=== PATIENT | female | born 1965 | race Caucasian/White ===

== ENCOUNTER 2018-09-21 18:56 | Observation (INO) | payer MEDICARE, MEDICAID ==
[~2018-09-21] VITALS: Ht 170.2 cm; Wt 76.8 kg
[~2018-09-21 18:56] MED LIST: ASPI-611 PO; BUSP30TA3 PO; CHOL10002 PO; DESV100T PO; EZET10TA14 PO; GLIM4TAB PO; HYDR-4353 PO; IMIP25TA7 PO; INSU100V12 SQ; LAMO200T2 PO; LISI-604 PO; LURA40TA3 PO; MECL-111 PO; METF-438 PO; MULT1TAB74 PO; OMEG1CAP2 PO; OMEP20CA10 PO; ONDA4TAB6 PO; ROSU20TA2 PO; [UNRECOGNIZED DRUG - CODE] PO
[2018-09-21 19:27] LABS: CLARITY,URINE CLEAR (Clear); COLOR,URINE YELLOW (Yellow); GLUCOSE, URINE 100 mg/dl (Neg); KETONES,URINE NEGATIVE (Neg); LEUKOCYTE ESTERASE ,URINE NEGATIVE (Neg); NITRITES, URINE NEGATIVE (Neg); OCCULT BLOOD,URINE NEGATIVE (Neg); PH,URINE 6.5 (4.8-8.0); PROTEIN,URINE NEGATIVE (Neg); UROBILINOGEN,URINE 0.2 E.U/dL (0.2-1.0)
[2018-09-21 19:31] LABS: UA COLLECTION TYPE CLN CATCH MIDSTREAM
[2018-09-21 19:42] LABS: BASOPHILS % (AUTO) 0.8 % (0-1); EOSINOPHILS # (AUTO) 0.1 X10'3 (0-0.9); EOSINOPHILS % (AUTO) 1.6 % (0-6); HEMATOCRIT 36.4 % (35.0-45.0); HEMOGLOBIN 12.4 g/dl (12.0-16.0); LYMPHOCYTES % (AUTO) 35.6 % (21-51); MEAN CORPUSCULAR HEMOGLOBIN 27.7 PG (27.0-31.0); MEAN CORPUSCULAR HGB CONC 34.1 g/dL (33.0-36.5); MEAN CORPUSCULAR VOLUME 81.3 FL (78-98); MEAN PLATELET VOLUME 7.4 FL (7.4-10.4); MONOCYTES # (AUTO) 0.3 X10'3 (0-0.9); MONOCYTES % (AUTO) 5.9 % (2-12); NEUTROPHILS # (AUTO) 3.2 X10'3 (1.8-7.7); NEUTROPHILS % (AUTO) 56.1 % (42-75); PLATELET COUNT 316 X10'3 (140-440); RED BLOOD COUNT 4.47 X10'6 (4.20-5.60); RED CELL DISTRIBUTION WIDTH 14.2 % (11.5-14.5); WHITE BLOOD COUNT 5.7 X10'3 (4.5-11.0)
[2018-09-21 19:54] LABS: PROTHROMBIN TIME 9.7 SECONDS (9.0-12.0)
[2018-09-21 19:57] LABS: ALANINE AMINOTRANSFERASE 29 U/L (12-78); ALBUMIN 3.8 G/DL (3.4-5.0); ALBUMIN/GLOBULIN RATIO 1.2 (1.1-1.5); ALKALINE PHOSPHATASE 46 IU/L (46-116); ANION GAP 10 (8-16); ASPARTATE AMINO TRANSFERASE 18 U/L (10-37); BILIRUBIN,TOTAL 0.2 MG/DL (0.1-1.0); BLOOD UREA NITROGEN 23 MG/DL (7-18); BUN/CREATININE RATIO 28.4 (6.6-38.0); CALCIUM 10.1 MG/DL (8.5-10.1); CHLORIDE 102 MMOL/L (99-107); CREATININE 0.81 MG/DL (0.40-0.90); GLUCOSE 204 MG/DL (70-104); LIPASE 131 U/L (73-393); POTASSIUM 3.9 MMOL/L (3.5-5.1); SODIUM 140 MMOL/L (135-145); TOTAL CARBON DIOXIDE 28.5 MMOL/L (24-32); TOTAL PROTEIN 6.9 G/DL (6.4-8.2); eGFR 74 ML/MIN
[2018-09-21] MEDS ORDERED: temazepam 15mg capsule PO PRN (21:00)
[2018-09-21] MEDS ORDERED: piperacillin/tazo 3.375gm/50ml 50 ML IV SCH (22:25)
[2018-09-21] MEDS ORDERED: piperacillin/tazo 3.375gm/50ml 50 ML IV ONE (22:27)
[2018-09-21] MEDS ORDERED: diphenhydrAMINE 50 mg/ml inj IV ONE (22:45)
[2018-09-21] MEDS ORDERED: morphine 4 MG/ML inj SYRINge IV ONE (22:45)
[2018-09-21] MEDS ORDERED: acetaminophen 325mg tablet PO PRN ×2 (23:10)
[2018-09-21] MEDS ORDERED: dextrose 50%-water 50ml dispensing syringe IV PRN ×2 (23:10)
[2018-09-21] MEDS ORDERED: mag hydrox/Alum hydrox/simeth 30ml oral suspension PO PRN (23:10)
[2018-09-21] MEDS ORDERED: ondansetron/PF 4mg/2ml inj IV PRN (23:10)
[2018-09-21] MEDS ORDERED: morphine 4 MG/ML inj SYRINge IV PRN (23:10)
[2018-09-21] MEDS ORDERED: MESSAGE TO PHARMACY PO ONE (23:10)
[2018-09-21] MEDS ORDERED: magnesium hydroxide 30ml (MOM) UD suspension PO PRN (23:10)
[2018-09-21] MEDS ORDERED: glucagon, human recombinant 1mg kit SUBCUT PRN (23:10)
[2018-09-21] MEDS ORDERED: HYDROcodone/acetaminophen 5mg/325mg tablet PO PRN (23:10)
[2018-09-21] MEDS ORDERED: dextrose ORAL solution 15 GM/59 ML bottle PO PRN ×2 (23:10)
[2018-09-21] MEDS: normal saline 1000ml 1,000 ML IV SCH (23:35)
[2018-09-21 23:57] LABS: HEMOGLOBIN A1C 8.6 % (4.5-6.2)
[2018-09-22] VITALS (20 sets, daily range): BP systolic 122–176; BP diastolic 77–94
[2018-09-22] MEDS: morphine 4 MG/ML inj SYRINge IV PRN ×2 (03:03→07:08)
[2018-09-22] MEDS: piperacillin/tazo 4.5gm/100ml 100 ML IV SCH ×3 (05:47→21:14)
[2018-09-22 05:55] LABS: BASOPHILS % (AUTO) 0.8 % (0-1); EOSINOPHILS # (AUTO) 0.1 X10'3 (0-0.9); EOSINOPHILS % (AUTO) 3.1 % (0-6); HEMATOCRIT 33.4 % (35.0-45.0); HEMOGLOBIN 11.4 g/dl (12.0-16.0); LYMPHOCYTES # (AUTO) 2.4 X10'3 (1.1-4.8); LYMPHOCYTES % (AUTO) 51.2 % (21-51); MEAN CORPUSCULAR HEMOGLOBIN 27.8 PG (27.0-31.0); MEAN CORPUSCULAR HGB CONC 34.2 g/dL (33.0-36.5); MEAN CORPUSCULAR VOLUME 81.3 FL (78-98); MEAN PLATELET VOLUME 7.3 FL (7.4-10.4); MONOCYTES # (AUTO) 0.4 X10'3 (0-0.9); MONOCYTES % (AUTO) 8.4 % (2-12); NEUTROPHILS # (AUTO) 1.7 X10'3 (1.8-7.7); NEUTROPHILS % (AUTO) 36.5 % (42-75); PLATELET COUNT 275 X10'3 (140-440); RED CELL DISTRIBUTION WIDTH 14.5 % (11.5-14.5); WHITE BLOOD COUNT 4.7 X10'3 (4.5-11.0)
[2018-09-22 06:07] LABS: ALBUMIN 3.2 G/DL (3.4-5.0); ANION GAP 7 (8-16); BLOOD UREA NITROGEN 22 MG/DL (7-18); BUN/CREATININE RATIO 26.8 (6.6-38.0); CALCIUM 8.7 MG/DL (8.5-10.1); CHLORIDE 107 MMOL/L (99-107); CREATININE 0.82 MG/DL (0.40-0.90); GLUCOSE 149 MG/DL (70-104); POTASSIUM 4.2 MMOL/L (3.5-5.1); SODIUM 142 MMOL/L (135-145); eGFR 73 ML/MIN
--- NOTE | 2018-09-22 06:37 | NUR ---
Problems reprioritized. Patient report given, questions answered & plan of care reviewed with luiz Su.
--- NOTE | 2018-09-22 06:47 | NUR ---
Received report from Nabila RN
--- NOTE | 2018-09-22 09:48 | NUR ---
DM Consult: A1C 8.6. Pt admit w/ acute pancreatitis currently NPO for OR today per MD note. Hx T2DM, hypercholesterolemia, and pacreatitis w/ stent placed. LBM 09/21. Will monitor for additional protein needs and DM ed post-op once stable. Rec: 1. advance to carb controlled/heart healthy diet post-op 2. monitor for ONS needs post-op 3. DM ed once clinically stable prior to d/c 4. wt per rx Addendum: 09/22/18 at [address] Amended: Links added.
[2018-09-22] MEDS ORDERED: ringers solution, lacted 1,000 ML IV ONE (10:39)
[2018-09-22] MEDS ORDERED: ringers solution, lacted 1,000 ML IV SCH (10:40)
[2018-09-22] MEDS ORDERED: labetalol 20mg/4ml (5mg/ml) syringe IV PRN (10:40)
[2018-09-22] MEDS ORDERED: morphine 4 MG/ML inj SYRINge IV PRN ×2 (10:40)
[2018-09-22] MEDS ORDERED: ondansetron/PF 4mg/2ml inj IV PRN ×2 (10:40→12:30)
[2018-09-22] MEDS ORDERED: hydrALAZINE 20mg/ml inj. IV PRN (10:40)
[2018-09-22] MEDS ORDERED: fentaNYL/PF 50MCG/1 ML 2ML syringe IV PRN (10:40)
[2018-09-22] MEDS ORDERED: BUPIVAcaine/PF 2.5mg/ml (0.25%) 10ml vial ONE (10:42)
[2018-09-22] MEDS ORDERED: rocuronium 10mg/ml inj IV ONE (10:49)
[2018-09-22] MEDS ORDERED: dexamethasone sod phosphate 4mg/ml inj. ONE (10:49)
[2018-09-22] MEDS ORDERED: glycopyrrolate 0.2mg/ml inj ONE (10:49)
[2018-09-22] MEDS ORDERED: fentaNYL/PF 50MCG/1 ML 2ML syringe ONE (10:49)
[2018-09-22] MEDS ORDERED: neostigmine methylsulfate 1 MG/ML 10ml vial ONE (10:49)
[2018-09-22] MEDS ORDERED: midazolam 2 mg/2 ml injection ONE (10:49)
[2018-09-22] MEDS ORDERED: LABETALOL HCL 200mg/40ml (5 MG/ML) inj. IV ONE (11:03)
[2018-09-22] MEDS ORDERED: sevoflurane 250ml liquid IH ONE (11:03)
[2018-09-22] MEDS ORDERED: ondansetron/PF 4mg/2ml inj ONE (11:20)
[2018-09-22] MEDS ORDERED: HYDROcodone/acetaminophen 10/325mg tab PO PRN (12:30)
--- NOTE | 2018-09-22 12:30 | NUR ---
Received from OR via , accompanied by Anesthesiologist DR LEDEZMA and report given by Anesthesiolgist. AWAKENS TO VOICE. VITALS STABLE. DRESSINGS DI. STATES MODERATE ABD PAIN. DEBO WITH SM AMNT SANG FLUID. ABD SOFT.
[2018-09-22] MEDS: fentaNYL/PF 50MCG/1 ML 2ML syringe IV PRN ×4 (12:39→16:29)
--- NOTE | 2018-09-22 13:50 | NUR ---
Report called to receiving nurse. Transferred via BED Belongings . Special Issues communicated to receiving nurse. AWAKE AND ORIENTED. VITALS STABLE. DRESSINGS DI. STATES PAIN IMPROVING. TO ORTHO RM [id number] AT THIS TIME.
[2018-09-22] MEDS: HYDROcodone/acetaminophen 10/325mg tab PO PRN ×3 (15:17→23:43)
[2018-09-22] MEDS: normal saline 1000ml 1,000 ML IV SCH ×2 (15:46→19:10)
[2018-09-22] MEDS: insulin Lispro (HumaLOG) vial - multi-dose SQ SCH ×2 (19:27→21:24)
[2018-09-22] MEDS: busPIRone 15mg tablet PO SCH (19:36)
[2018-09-22] MEDS: venlafaxine 25mg tablet PO SCH (19:37)
[2018-09-22] MEDS ORDERED: non-formulary drug (Buspirone HCl 1 TAB) PO SCH (20:00)
[2018-09-22] MEDS ORDERED: insulin glargine (Lantus) pen - multi-dose SQ SCH (21:00)
[2018-09-22] MEDS ORDERED: non-formulary drug (Meclizine HCl 1 TAB) PO SCH (21:00)
[2018-09-22] MEDS ORDERED: lurasidone 20mg tablet PO SCH (21:00)
[2018-09-22] MEDS ORDERED: lisinopril 5mg tablet PO SCH (21:00)
[2018-09-22] MEDS ORDERED: non-formulary drug (Lurasidone HCl (Latuda) 1 TAB) PO SCH (21:00)
[2018-09-22] MEDS ORDERED: LAMOTRIGINE PO SCH (21:00)
[2018-09-22] MEDS ORDERED: imipramine 25mg tablet PO SCH (21:00)
[2018-09-22] MEDS ORDERED: atorvastatin 20mg tablet PO SCH (21:00)
[2018-09-22] MEDS ORDERED: lamoTRIgine 100mg tablet PO SCH (21:00)
[2018-09-22] MEDS ORDERED: ROSUVASTATIN CALCIUM PO SCH (21:00)
[2018-09-22] MEDS: meclizine 12.5mg tablet PO SCH (21:15)
--- NOTE | 2018-09-22 23:42 | NUR ---
pt ambulated the floor w/o problems
[2018-09-23] MEDS: HYDROcodone/acetaminophen 10/325mg tab PO PRN ×3 (03:52→13:45)
[2018-09-23 06:17] LABS: BASOPHILS % (AUTO) 0.4 % (0-1); EOSINOPHILS % (AUTO) 0 % (0-6); HEMOGLOBIN 11.9 g/dl (12.0-16.0); LYMPHOCYTES # (AUTO) 1.1 X10'3 (1.1-4.8); LYMPHOCYTES % (AUTO) 11.7 % (21-51); MEAN CORPUSCULAR HEMOGLOBIN 27.5 PG (27.0-31.0); MEAN CORPUSCULAR HGB CONC 34.1 g/dL (33.0-36.5); MEAN CORPUSCULAR VOLUME 80.8 FL (78-98); MEAN PLATELET VOLUME 7.4 FL (7.4-10.4); MONOCYTES # (AUTO) 0.7 X10'3 (0-0.9); MONOCYTES % (AUTO) 7.6 % (2-12); NEUTROPHILS # (AUTO) 7.3 X10'3 (1.8-7.7); NEUTROPHILS % (AUTO) 80.3 % (42-75); PLATELET COUNT 316 X10'3 (140-440); RED BLOOD COUNT 4.34 X10'6 (4.20-5.60); RED CELL DISTRIBUTION WIDTH 14.4 % (11.5-14.5); WHITE BLOOD COUNT 9.1 X10'3 (4.5-11.0)
[2018-09-23 06:27] LABS: ALBUMIN 3.3 G/DL (3.4-5.0); ANION GAP 7 (8-16); BLOOD UREA NITROGEN 12 MG/DL (7-18); BUN/CREATININE RATIO 16.4 (6.6-38.0); CALCIUM 8.6 MG/DL (8.5-10.1); CHLORIDE 106 MMOL/L (99-107); CREATININE 0.73 MG/DL (0.40-0.90); GLUCOSE 180 MG/DL (70-104); SODIUM 140 MMOL/L (135-145); TOTAL CARBON DIOXIDE 27.5 MMOL/L (24-32); eGFR 83 ML/MIN
--- NOTE | 2018-09-23 06:37 | NUR ---
Problems reprioritized. Patient report given, questions answered & plan of care reviewed with CHANDA GRANDE.
[2018-09-23 07:00] VITALS: BP 122/83
[2018-09-23] MEDS: busPIRone 15mg tablet PO SCH (07:28)
[2018-09-23] MEDS: venlafaxine 25mg tablet PO SCH (07:28)
[2018-09-23] MEDS: meclizine 12.5mg tablet PO SCH ×2 (07:28→13:00)
[2018-09-23] MEDS: piperacillin/tazo 4.5gm/100ml 100 ML IV SCH ×2 (07:29→14:00)
[2018-09-23] MEDS: normal saline 1000ml 1,000 ML IV SCH (07:29)
[2018-09-23] MEDS ORDERED: DESVENLAFAXINE SUCCINATE PO SCH (08:00)
[2018-09-23] MEDS: insulin Lispro (HumaLOG) vial - multi-dose SQ SCH (09:31)
--- NOTE | 2018-09-23 11:38 | NUR ---
Student documentation: I have reviewed all interventions, assessments performed and documented by Amita Carvajal. Student Medication Administration: For this medication-pass time frame, all medication were reviewed, dispensed, administered and documented per hospital policy by Jessica Carvajal.
[2018-09-23 12:00] VITALS: BP 130/80
== END 2018-09-23 14:59 | disposition home or self-care (01) ==
LOC: ER 18:57 → ED HOLD 23:10 → ORTHO 4S 09-22 01:03
PROVIDERS: ADMIT Hospitalist; ATTEND Hospitalist
DX: K35.80 Unspecified acute appendicitis (principal); R10.31 Right lower quadrant pain; E11.9 Type 2 diabetes mellitus without complications; E78.00 Pure hypercholesterolemia, unspecified; I10 Essential (primary) hypertension; K21.9 Gastro-esophageal reflux disease without esophagitis; M54.9 Dorsalgia, unspecified; G89.29 Other chronic pain; F41.9 Anxiety disorder, unspecified; F31.9 Bipolar disorder, unspecified; E78.5 Hyperlipidemia, unspecified; Z87.442 Personal history of urinary calculi; Z90.49 Acquired absence of other specified parts of digestive tract; Z87.891 Personal history of nicotine dependence; Z88.0 Allergy status to penicillin; Z79.2 Long term (current) use of antibiotics; Z87.19 Personal history of other diseases of the digestive system; Z90.710 Acquired absence of both cervix and uterus
CPT/HCPCS: 36415; 44970; 74176; 80048; 80053; 81003; 82948; 83036; 83690; 85025; 85610; 87070; 96365; 96366; 96372; 96375; 96376; 99284; G0378; J1100; J1200; J2250; J2270; J2405; J2543; J2710; J3010; J3490; J7030; J7120; J8597; 88304; A4315; A6251; A7000; J1815

== ENCOUNTER → 2018-09-29 | Emergency (ER) | payer MEDICARE, MEDICAID ==
[~2018-09-29] VITALS: Ht 170.2 cm; Wt 76.4 kg
[~2018-09-29] MED LIST changes: -MECL-111 PO; -[UNRECOGNIZED DRUG - CODE] PO
[2018-09-29 20:51] LABS: CLARITY,URINE CLEAR (Clear); COLOR,URINE STRAW (Yellow); GLUCOSE, URINE 500 mg/dl (Neg); KETONES,URINE NEGATIVE (Neg); LEUKOCYTE ESTERASE ,URINE NEGATIVE (Neg); NITRITES, URINE NEGATIVE (Neg); OCCULT BLOOD,URINE NEGATIVE (Neg); PH,URINE 6.5 (4.8-8.0); PROTEIN,URINE NEGATIVE (Neg); UROBILINOGEN,URINE 0.2 E.U/dL (0.2-1.0)
[2018-09-29 20:53] LABS: URINE HCG NEGATIVE (NEG)
[2018-09-29 20:55] LABS: UA COLLECTION TYPE CLN CATCH MIDSTREAM
[2018-09-29 20:55] LABS: BASOPHILS # (AUTO) 0.1 X10'3 (0-0.2); BASOPHILS % (AUTO) 0.8 % (0-1); EOSINOPHILS # (AUTO) 0.5 X10'3 (0-0.9); EOSINOPHILS % (AUTO) 7.3 % (0-6); HEMATOCRIT 36.1 % (35.0-45.0); HEMOGLOBIN 12.4 g/dl (12.0-16.0); LYMPHOCYTES # (AUTO) 2.4 X10'3 (1.1-4.8); LYMPHOCYTES % (AUTO) 37.8 % (21-51); MEAN CORPUSCULAR HEMOGLOBIN 27.6 PG (27.0-31.0); MEAN CORPUSCULAR HGB CONC 34.5 g/dL (33.0-36.5); MEAN CORPUSCULAR VOLUME 80.2 FL (78-98); MEAN PLATELET VOLUME 7.3 FL (7.4-10.4); MONOCYTES # (AUTO) 0.5 X10'3 (0-0.9); MONOCYTES % (AUTO) 7.8 % (2-12); NEUTROPHILS # (AUTO) 2.9 X10'3 (1.8-7.7); NEUTROPHILS % (AUTO) 46.3 % (42-75); PLATELET COUNT 353 X10'3 (140-440); RED CELL DISTRIBUTION WIDTH 14.2 % (11.5-14.5); WHITE BLOOD COUNT 6.3 X10'3 (4.5-11.0)
[2018-09-29 21:05] LABS: INR 0.9 INR; PROTHROMBIN TIME 9.4 SECONDS (9.0-12.0)
[2018-09-29 21:07] LABS: ALANINE AMINOTRANSFERASE 36 U/L (12-78); ALBUMIN 3.8 G/DL (3.4-5.0); ALBUMIN/GLOBULIN RATIO 1.2 (1.1-1.5); ALKALINE PHOSPHATASE 61 IU/L (46-116); AMYLASE 52 U/L (25-115); ANION GAP 6 (8-16); ASPARTATE AMINO TRANSFERASE 19 U/L (10-37); BILIRUBIN,TOTAL 0.2 MG/DL (0.1-1.0); BLOOD UREA NITROGEN 14 MG/DL (7-18); BUN/CREATININE RATIO 17.3 (6.6-38.0); CALCIUM 9.4 MG/DL (8.5-10.1); CHLORIDE 103 MMOL/L (99-107); CREATININE 0.81 MG/DL (0.40-0.90); GLUCOSE 233 MG/DL (70-104); LIPASE 172 U/L (73-393); POTASSIUM 3.9 MMOL/L (3.5-5.1); SODIUM 138 MMOL/L (135-145); TOTAL CARBON DIOXIDE 28.6 MMOL/L (24-32); eGFR 74 ML/MIN
[2018-09-29 22:13] VITALS: BP 134/86
== END | disposition home or self-care (01) ==
LOC: ER 20:10
DX: G89.18 Other acute postprocedural pain (principal); K56.7 Ileus, unspecified; R10.84 Generalized abdominal pain; E78.00 Pure hypercholesterolemia, unspecified; I10 Essential (primary) hypertension; K21.9 Gastro-esophageal reflux disease without esophagitis; E11.9 Type 2 diabetes mellitus without complications; G89.29 Other chronic pain; Z90.49 Acquired absence of other specified parts of digestive tract; Z90.710 Acquired absence of both cervix and uterus; Z98.890 Other specified postprocedural states; Z88.1 Allergy status to other antibiotic agents; Z79.82 Long term (current) use of aspirin; Z79.899 Other long term (current) drug therapy; Z79.4 Long term (current) use of insulin
CPT/HCPCS: 36415; 74018; 80053; 81003; 81025; 82150; 83690; 85025; 85610; 93005; 99284

== ENCOUNTER 2018-10-11 03:23 | Emergency (ER) | payer MEDICARE, MEDICAID ==
[~2018-10-11] VITALS: Ht 170.2 cm; Wt 65.8 kg
--- NOTE | 2018-10-11 03:37 | NUR ---
PTS WOUND APPEARS TO BE HEALING WELL, NO S/S INFECTION NOTED. PT SEEN AT SURGEONS OFFICE FRIDAY, YESTERDAY EACH TOLD HER NO PROBLEMS WITH THE WOUND.
[2018-10-11] MEDS ORDERED: normal saline 1000ML IV soln IVB ONE (03:50)
[2018-10-11] MEDS ORDERED: ondansetron/PF 4mg/2ml inj IV ONE (03:50)
[2018-10-11] MEDS ORDERED: iohexol 300mg/ml 100ml inj. ONE (03:58)
[2018-10-11] MEDS ORDERED: [UNRECOGNIZED DRUG - REMARK] PO NR (04:00)
--- NOTE | 2018-10-11 04:10 | NUR ---
LABS DRAWN, INCLUDNG BLOOD CULTURES
[2018-10-11] MEDS: morphine 4 MG/ML inj SYRINge IV PRN ×3 (04:20→07:20)
[2018-10-11 04:38] LABS: BASOPHILS # (AUTO) 0.1 X10'3 (0-0.2); BASOPHILS % (AUTO) 0.5 % (0-1); EOSINOPHILS # (AUTO) 0.6 X10'3 (0-0.9); EOSINOPHILS % (AUTO) 4.1 % (0-6); HEMATOCRIT 37.5 % (35.0-45.0); HEMOGLOBIN 12.6 g/dl (12.0-16.0); LYMPHOCYTES # (AUTO) 1.8 X10'3 (1.1-4.8); LYMPHOCYTES % (AUTO) 12.4 % (21-51); MEAN CORPUSCULAR HEMOGLOBIN 27.3 PG (27.0-31.0); MEAN CORPUSCULAR HGB CONC 33.6 g/dL (33.0-36.5); MEAN CORPUSCULAR VOLUME 81.2 FL (78-98); MEAN PLATELET VOLUME 7.8 FL (7.4-10.4); MONOCYTES # (AUTO) 1.2 X10'3 (0-0.9); MONOCYTES % (AUTO) 8.4 % (2-12); NEUTROPHILS # (AUTO) 10.7 X10'3 (1.8-7.7); NEUTROPHILS % (AUTO) 74.6 % (42-75); PLATELET COUNT 304 X10'3 (140-440); RED BLOOD COUNT 4.62 X10'6 (4.20-5.60); RED CELL DISTRIBUTION WIDTH 14.7 % (11.5-14.5); WHITE BLOOD COUNT 14.4 X10'3 (4.5-11.0)
[2018-10-11 04:58] LABS: CLARITY,URINE CLEAR (Clear); COLOR,URINE YELLOW (Yellow); GLUCOSE, URINE 500 mg/dl (Neg); KETONES,URINE 40 mg/dl (Neg); LEUKOCYTE ESTERASE ,URINE NEGATIVE (Neg); NITRITES, URINE NEGATIVE (Neg); OCCULT BLOOD,URINE NEGATIVE (Neg); PH,URINE 5.5 (4.8-8.0); PROTEIN,URINE NEGATIVE (Neg); UROBILINOGEN,URINE 0.2 E.U/dL (0.2-1.0)
--- NOTE | 2018-10-11 04:59 | NUR ---
NO SIGNIFICANT IMPROVMENT IN PTS PAIN AFTER FIRST DOSE OF MORPHINE, SECOND DOSE ADMINSTERED.
[2018-10-11 05:00] LABS: UA COLLECTION TYPE CLN CATCH MIDSTREAM
[2018-10-11 05:00] LABS: ALANINE AMINOTRANSFERASE 24 U/L (12-78); ALBUMIN 3.3 G/DL (3.4-5.0); ALBUMIN/GLOBULIN RATIO 0.9 (1.1-1.5); ALKALINE PHOSPHATASE 62 IU/L (46-116); ANION GAP 10 (8-16); ASPARTATE AMINO TRANSFERASE 11 U/L (10-37); BILIRUBIN,TOTAL 0.4 MG/DL (0.1-1.0); BLOOD UREA NITROGEN 17 MG/DL (7-18); BUN/CREATININE RATIO 18.5 (6.6-38.0); CALCIUM 9.6 MG/DL (8.5-10.1); CHLORIDE 100 MMOL/L (99-107); CREATININE 0.92 MG/DL (0.40-0.90); GLUCOSE 229 MG/DL (70-104); LIPASE 90 U/L (73-393); POTASSIUM 4.2 MMOL/L (3.5-5.1); SODIUM 136 MMOL/L (135-145); TOTAL CARBON DIOXIDE 25.7 MMOL/L (24-32); TOTAL PROTEIN 6.9 G/DL (6.4-8.2); eGFR 64 ML/MIN
[2018-10-11] MEDS ORDERED: piperacillin/tazo 3.375gm/50ml 50 ML IV ONE (05:55)
[2018-10-11] MEDS ORDERED: vancomycin/NS 1 GM ADD-VANTAGE 250 ML IV ONE (05:55)
[2018-10-11] MEDS ORDERED: LIDOcaine 1% w/epiNEPHrine 1:200,000 30ml vial IM ONE (06:05)
--- NOTE | 2018-10-11 06:43 | NUR ---
DR. HONEYCUTT AT THE BEDSIDE FOR WOUND ASSESSMENT/DRAINAGE.
[2018-10-11] MEDS ORDERED: CLIN-96 PO (07:03)
[2018-10-11] MEDS ORDERED: HYDR-3965 PO (07:03)
--- NOTE | 2018-10-11 07:25 | NUR ---
Surrounding area of abd wound cleansed with saline. clean dry dressing applied. Patient instructed to avoid pulling packing out until instructed to do so. Patient verbalized understanding.
[2018-10-11 07:35] VITALS: BP 123/73
== END 2018-10-11 07:38 | disposition home or self-care (01) ==
LOC: ER 03:24
DX: L02.211 Cutaneous abscess of abdominal wall (principal); R19.7 Diarrhea, unspecified; R11.10 Vomiting, unspecified; E78.00 Pure hypercholesterolemia, unspecified; I10 Essential (primary) hypertension; K21.9 Gastro-esophageal reflux disease without esophagitis; E11.9 Type 2 diabetes mellitus without complications; G89.29 Other chronic pain; Z90.49 Acquired absence of other specified parts of digestive tract; Z90.710 Acquired absence of both cervix and uterus; Z88.1 Allergy status to other antibiotic agents; Z87.442 Personal history of urinary calculi; Z79.82 Long term (current) use of aspirin; Z79.4 Long term (current) use of insulin; Z79.84 Long term (current) use of oral hypoglycemic drugs; Z79.899 Other long term (current) drug therapy; Z98.890 Other specified postprocedural states
CPT/HCPCS: 36415; 74177; 80053; 81003; 83605; 83690; 84145; 85025; 87070; 87077; 87186; 96361; 96374; 96375; 96376; 99284; J2270; J2405; J3490; J7030; Q9967

== ENCOUNTER 2018-11-01 15:09 | Emergency (ER) | payer MEDICARE, MEDICAID ==
[~2018-11-01] VITALS: Ht 170.2 cm; Wt 77.7 kg
[~2018-11-01 15:09] MED LIST changes: +AMOX-580 PO; +CLON-529 PO; +ESTR-42 PO; -GLIM4TAB PO; -HYDR-4353 PO; -ONDA4TAB6 PO; +PREG150C PO; +PREG300C PO; +SITA25TA3 PO; +TEMA30CA5 PO; +TRAM50TA2 PO
[2018-11-01 15:59] LABS: BASOPHILS % (AUTO) 0.7 % (0-1); EOSINOPHILS # (AUTO) 0.3 X10'3 (0-0.9); EOSINOPHILS % (AUTO) 4.4 % (0-6); HEMATOCRIT 35.9 % (35.0-45.0); HEMOGLOBIN 12.1 g/dl (12.0-16.0); LYMPHOCYTES # (AUTO) 2.2 X10'3 (1.1-4.8); LYMPHOCYTES % (AUTO) 35.7 % (21-51); MEAN CORPUSCULAR HEMOGLOBIN 27.4 PG (27.0-31.0); MEAN CORPUSCULAR HGB CONC 33.6 g/dL (33.0-36.5); MEAN CORPUSCULAR VOLUME 81.6 FL (78-98); MEAN PLATELET VOLUME 7.5 FL (7.4-10.4); MONOCYTES # (AUTO) 0.5 X10'3 (0-0.9); MONOCYTES % (AUTO) 8.1 % (2-12); NEUTROPHILS # (AUTO) 3.1 X10'3 (1.8-7.7); NEUTROPHILS % (AUTO) 51.1 % (42-75); PLATELET COUNT 362 X10'3 (140-440); RED CELL DISTRIBUTION WIDTH 14.8 % (11.5-14.5); WHITE BLOOD COUNT 6.1 X10'3 (4.5-11.0)
[2018-11-01 16:10] LABS: ALANINE AMINOTRANSFERASE 28 U/L (12-78); ALBUMIN 3.8 G/DL (3.4-5.0); ALBUMIN/GLOBULIN RATIO 1.2 (1.1-1.5); ALKALINE PHOSPHATASE 52 IU/L (46-116); ANION GAP 8 (8-16); ASPARTATE AMINO TRANSFERASE 16 U/L (10-37); BILIRUBIN,TOTAL 0.2 MG/DL (0.1-1.0); BLOOD UREA NITROGEN 15 MG/DL (7-18); BUN/CREATININE RATIO 20.5 (6.6-38.0); CALCIUM 9.8 MG/DL (8.5-10.1); CHLORIDE 104 MMOL/L (99-107); CREATININE 0.73 MG/DL (0.40-0.90); GLUCOSE 211 MG/DL (70-104); POTASSIUM 3.9 MMOL/L (3.5-5.1); SODIUM 139 MMOL/L (135-145); TOTAL PROTEIN 6.9 G/DL (6.4-8.2); eGFR 83 ML/MIN
[2018-11-01 16:23] LABS: URINE HCG NEGATIVE (NEG)
[2018-11-01 16:36] LABS: CLARITY,URINE CLEAR (Clear); COLOR,URINE YELLOW (Yellow); GLUCOSE, URINE 500 mg/dl (Neg); KETONES,URINE NEGATIVE (Neg); LEUKOCYTE ESTERASE ,URINE NEGATIVE (Neg); NITRITES, URINE NEGATIVE (Neg); OCCULT BLOOD,URINE NEGATIVE (Neg); PH,URINE 6.5 (4.8-8.0); PROTEIN,URINE NEGATIVE (Neg); UROBILINOGEN,URINE 0.2 E.U/dL (0.2-1.0)
[2018-11-01 16:37] LABS: UA COLLECTION TYPE CLN CATCH MIDSTREAM
[2018-11-01] MEDS ORDERED: traMADol 50MG tablet PO ONE (17:35)
[2018-11-01 17:45] VITALS: BP 149/88
== END 2018-11-01 17:46 | disposition home or self-care (01) ==
LOC: ER 15:09
DX: R10.32 Left lower quadrant pain (principal); I10 Essential (primary) hypertension; E78.00 Pure hypercholesterolemia, unspecified; K21.9 Gastro-esophageal reflux disease without esophagitis; E11.9 Type 2 diabetes mellitus without complications; G89.29 Other chronic pain; M54.9 Dorsalgia, unspecified; F12.90 Cannabis use, unspecified, uncomplicated; Z90.49 Acquired absence of other specified parts of digestive tract; Z90.710 Acquired absence of both cervix and uterus; Z88.1 Allergy status to other antibiotic agents; Z79.82 Long term (current) use of aspirin; Z79.4 Long term (current) use of insulin
CPT/HCPCS: 36415; 80053; 81003; 81025; 84145; 85025; 85610; 99283

== ENCOUNTER 2019-06-14 13:19 | Inpatient (IN) | payer MEDICARE, MEDICAID ==
[~2019-06-14] VITALS: Ht 170.2 cm; Wt 72.0 kg
[~2019-06-14 13:19] MED LIST changes: -AMOX-580 PO; +DOXY100C5 PO; -EZET10TA14 PO; +EZET10TA21 PO; +OMEP-297 PO; -OMEP20CA10 PO
[2019-06-14 14:28] LABS: BASOPHILS # (AUTO) 0.1 X10'3 (0-0.2); BASOPHILS % (AUTO) 0.6 % (0-1); EOSINOPHILS # (AUTO) 0.2 X10'3 (0-0.9); EOSINOPHILS % (AUTO) 1.3 % (0-6); HEMATOCRIT 33.6 % (35.0-45.0); HEMOGLOBIN 11.7 g/dl (12.0-16.0); LYMPHOCYTES # (AUTO) 1.2 X10'3 (1.1-4.8); LYMPHOCYTES % (AUTO) 10.2 % (21-51); MEAN CORPUSCULAR HEMOGLOBIN 28.1 PG (27.0-31.0); MEAN CORPUSCULAR HGB CONC 34.9 g/dL (33.0-36.5); MEAN CORPUSCULAR VOLUME 80.4 FL (78-98); MEAN PLATELET VOLUME 7.8 FL (7.4-10.4); MONOCYTES # (AUTO) 0.9 X10'3 (0-0.9); NEUTROPHILS # (AUTO) 9.3 X10'3 (1.8-7.7); NEUTROPHILS % (AUTO) 79.9 % (42-75); PLATELET COUNT 351 X10'3 (140-440); RED BLOOD COUNT 4.18 X10'6 (4.20-5.60); WHITE BLOOD COUNT 11.7 X10'3 (4.5-11.0)
[2019-06-14 14:39] LABS: ALANINE AMINOTRANSFERASE 29 U/L (12-78); ALBUMIN 2.4 G/DL (3.4-5.0); ALBUMIN/GLOBULIN RATIO 0.5 (1.1-1.5); ALKALINE PHOSPHATASE 208 IU/L (46-116); ANION GAP 9 (8-16); ASPARTATE AMINO TRANSFERASE 27 U/L (10-37); BILIRUBIN,TOTAL 0.6 MG/DL (0.1-1.0); BLOOD UREA NITROGEN 9 MG/DL (7-18); BUN/CREATININE RATIO 12.3 (6.6-38.0); CALCIUM 8.9 MG/DL (8.5-10.1); CHLORIDE 97 MMOL/L (99-107); CREATININE 0.73 MG/DL (0.40-0.90); GLUCOSE 240 MG/DL (70-104); SODIUM 135 MMOL/L (135-145); TOTAL CARBON DIOXIDE 28.9 MMOL/L (24-32); TOTAL PROTEIN 7.2 G/DL (6.4-8.2); eGFR 83 ML/MIN
[2019-06-14 14:40] LABS: POTASSIUM 3.8 MMOL/L (3.5-5.1)
[2019-06-14 14:51] LABS: PLATELET ESTIMATE NORMAL; TOTAL CELLS COUNTED 100; TOXIC GRANULATION 1+; TOXIC VACUOLATION FEW
[2019-06-14] MEDS ORDERED: normal saline 1000ML IV soln IV ONE (15:35)
[2019-06-14] MEDS ORDERED: CefTRIAXone 2gm/D5W 50ml 50 ML IV ONE (15:35)
[2019-06-14] MEDS ORDERED: magnesium hydroxide 30ml (MOM) UD suspension PO PRN (15:50)
[2019-06-14] MEDS ORDERED: ondansetron/PF 4mg/2ml inj IV PRN (15:50)
[2019-06-14] MEDS ORDERED: mag hydrox/Alum hydrox/simeth 30ml oral suspension PO PRN (15:50)
[2019-06-14] MEDS ORDERED: acetaminophen 325mg tablet PO PRN (15:50)
[2019-06-14] MEDS ORDERED: PREG150C46 PO (16:40)
[2019-06-14] MEDS ORDERED: LURA60TA2 PO (16:40)
[2019-06-14] MEDS ORDERED: BENZ-49 PO (16:43)
[2019-06-14] MEDS: azithromycin/NS 500mg/250ml 250 ML IV SCH (16:46)
[2019-06-14] MEDS ORDERED: LURA80TA3 PO (16:50)
--- NOTE | 2019-06-14 17:36 | NUR ---
Report received from ED RNDarcie
--- NOTE | 2019-06-14 18:25 | NUR ---
Problems reprioritized. Patient report given, questions answered & plan of care reviewed with Adalgisa Diana RN.
[2019-06-14] MEDS ORDERED: dextrose 50%-water 50ml dispensing syringe IV PRN ×2 (18:30)
[2019-06-14] MEDS ORDERED: dextrose ORAL solution 15 GM/59 ML bottle PO PRN ×2 (18:30)
[2019-06-14] MEDS ORDERED: glucagon, human recombinant 1mg kit SUBCUT PRN (18:30)
--- NOTE | 2019-06-14 18:30 | NUR ---
Patient in room [facility]. I have received report from THONY ARMAS and had the opportunity to ask questions and assume patient care.
[2019-06-14] MEDS: normal saline 1000ml 1,000 ML IV SCH ×2 (19:00→23:53)
[2019-06-14 19:02] LABS: HEMOGLOBIN A1C 9.5 % (4.5-6.2)
[2019-06-14 20:00] VITALS: BP 164/87
[2019-06-14] MEDS ORDERED: lisinopril 5mg tablet PO SCH (21:00)
[2019-06-14] MEDS: imipramine 25mg tablet PO SCH (21:35)
[2019-06-14] MEDS: venlafaxine 25mg tablet PO SCH (21:36)
[2019-06-14] MEDS: pregabalin 75mg capsule PO SCH (21:38)
[2019-06-14] MEDS: lamoTRIgine 100mg tablet PO SCH (21:39)
[2019-06-14] MEDS: ezetimibe 10mg tablet PO SCH (21:40)
[2019-06-14] MEDS: vitamin D (cholecalciferol) 1,000 unit tablet PO SCH (21:40)
[2019-06-14] MEDS: cloNIDine 0.1 mg tablet PO SCH (21:40)
[2019-06-14] MEDS: busPIRone 15mg tablet PO SCH (21:43)
[2019-06-14] MEDS: heparin, porcine 5000 units/ml vial SQ SCH (21:44)
[2019-06-14] MEDS: HYDROcodone/acetaminophen 5mg/325mg tablet PO PRN (21:54)
[2019-06-14] MEDS: insulin glargine (Lantus) pen - multi-dose SQ SCH (22:23)
[2019-06-14] MEDS: benzonatate 100mg capsule PO SCH (23:57)
[2019-06-14] MEDS: traMADol 50MG tablet PO SCH (23:58)
[2019-06-15] VITALS: BP 146/80
[2019-06-15 04:58] LABS: BASOPHILS % (AUTO) 0.3 % (0-1); EOSINOPHILS % (AUTO) 0.4 % (0-6); HEMATOCRIT 29.3 % (35.0-45.0); HEMOGLOBIN 10.2 g/dl (12.0-16.0); LYMPHOCYTES # (AUTO) 1.6 X10'3 (1.1-4.8); LYMPHOCYTES % (AUTO) 16.3 % (21-51); MEAN CORPUSCULAR HEMOGLOBIN 28.3 PG (27.0-31.0); MEAN CORPUSCULAR HGB CONC 34.9 g/dL (33.0-36.5); MEAN CORPUSCULAR VOLUME 81.2 FL (78-98); MEAN PLATELET VOLUME 7.4 FL (7.4-10.4); MONOCYTES % (AUTO) 10.5 % (2-12); NEUTROPHILS # (AUTO) 7.1 X10'3 (1.8-7.7); NEUTROPHILS % (AUTO) 72.5 % (42-75); PLATELET COUNT 332 X10'3 (140-440); RED BLOOD COUNT 3.61 X10'6 (4.20-5.60); RED CELL DISTRIBUTION WIDTH 15.3 % (11.5-14.5); WHITE BLOOD COUNT 9.8 X10'3 (4.5-11.0)
[2019-06-15 05:16] LABS: ANION GAP 9 (8-16); BLOOD UREA NITROGEN 5 MG/DL (7-18); BUN/CREATININE RATIO 8.1 (6.6-38.0); CALCIUM 8.1 MG/DL (8.5-10.1); CHLORIDE 105 MMOL/L (99-107); CREATININE 0.62 MG/DL (0.40-0.90); GLUCOSE 134 MG/DL (70-104); POTASSIUM 3.2 MMOL/L (3.5-5.1); SODIUM 141 MMOL/L (135-145); TOTAL CARBON DIOXIDE 27.3 MMOL/L (24-32); eGFR > 90 ML/MIN
--- NOTE | 2019-06-15 06:20 | NUR ---
Patient in room [facility]. I have received report from Adalgisa Diana RN and had the opportunity to ask questions and assume patient care.
--- NOTE | 2019-06-15 06:23 | NUR ---
Problems reprioritized. Patient report given, questions answered & plan of care reviewed with THONY RN.
[2019-06-15 06:30] VITALS: BP 160/88
[2019-06-15 07:18] LABS: TOTAL CELLS COUNTED 100
[2019-06-15 07:19] LABS: ANISOCYTOSIS 1+; PLATELET ESTIMATE NORMAL
[2019-06-15 07:20] LABS: TOXIC GRANULATION 1+
[2019-06-15 07:28] LABS: POLYCHROMASIA FEW
[2019-06-15] MEDS: busPIRone 15mg tablet PO SCH ×2 (07:42→21:30)
[2019-06-15] MEDS: traMADol 50MG tablet PO SCH ×2 (07:43→16:11)
[2019-06-15] MEDS: venlafaxine 25mg tablet PO SCH ×3 (07:43→21:31)
[2019-06-15] MEDS: azithromycin/NS 500mg/250ml 250 ML IV SCH (07:44)
[2019-06-15] MEDS: pregabalin 75mg capsule PO SCH ×3 (07:45→21:29)
[2019-06-15] MEDS: multivitamins, therapeutics tablet PO SCH (07:45)
[2019-06-15] MEDS: aspirin 81mg tablet.DR PO SCH (07:45)
[2019-06-15] MEDS: lisinopril 5mg tablet PO SCH (07:46)
[2019-06-15] MEDS: atorvastatin 20mg tablet PO SCH (07:49)
[2019-06-15] MEDS: pantoprazole 40mg Tablet.DR PO SCH (07:49)
[2019-06-15] MEDS: benzonatate 100mg capsule PO SCH ×2 (07:49→16:11)
[2019-06-15] MEDS: heparin, porcine 5000 units/ml vial SQ SCH ×2 (07:50→21:32)
[2019-06-15] MEDS ORDERED: linagliptin 5mg tablet PO SCH (08:00)
[2019-06-15] MEDS: lurasidone 20mg tablet PO SCH (08:04)
[2019-06-15] MEDS: omega-3 acid ethyl esters 1GM capsule PO SCH (08:04)
[2019-06-15] MEDS ORDERED: magnesium 2GM in 50ml NS 50 ML IV PRN (08:10)
[2019-06-15] MEDS ORDERED: potassium CL 10mEq/100ml bag 100 ML IV PRN (08:10)
[2019-06-15] MEDS ORDERED: magnesium 4gm in 100ml NS 100 ML IV PRN (08:10)
[2019-06-15] MEDS ORDERED: magnesium Cl slow-release 64mg tablet PO PRN (08:10)
[2019-06-15] MEDS ORDERED: potassium Cl 20 mEq SR tablet PO PRN (08:10)
[2019-06-15] MEDS: potassium Cl 20 mEq SR tablet PO PRN ×3 (08:30→16:10)
[2019-06-15] MEDS: insulin Lispro (HumaLOG) vial - multi-dose SQ SCH ×2 (08:33→13:01)
[2019-06-15] MEDS: CefTRIAXone 2gm/D5W 50ml 50 ML IV SCH (09:06)
[2019-06-15] MEDS: HYDROcodone/acetaminophen 5mg/325mg tablet PO PRN ×3 (10:39→21:38)
[2019-06-15] MEDS: normal saline 1000ml 1,000 ML IV SCH ×2 (10:39→21:50)
[2019-06-15 11:00] VITALS: BP 155/86
--- NOTE | 2019-06-15 11:34 | NUR ---
DM consult: Pt with T2DM with A1c 9.5, up from 8.6 in August of this year per records. DM education not appropriate at this time as pt A/O x 2 per physical assessment. Pt currently on a heart healthy CHO controlled diet documented with 75-100% PO intake meeting nutrient needs. [facility] 06/14. Will continue to follow. Addendum: 06/15/19 at [address] Amended: Links added.
[2019-06-15] MEDS ORDERED: acetaminophen 325mg tablet PO PRN (14:35)
[2019-06-15] MEDS ORDERED: iohexol 350MG/ML 100ml bottle IV ONE (16:05)
--- NOTE | 2019-06-15 18:20 | NUR ---
Problems reprioritized. Patient report given, questions answered & plan of care reviewed with Adalgisa Diana RN.
--- NOTE | 2019-06-15 18:30 | NUR ---
Patient in room [facility]. I have received report from THONY ARMAS and had the opportunity to ask questions and assume patient care.
--- NOTE | 2019-06-15 18:41 | NUR ---
patient only had a bite of her lasagna for dinner and had 111BS before dinner, pt will not cover for short acting insulin at this time.
[2019-06-15 20:00] VITALS: BP 180/98
[2019-06-15] MEDS: insulin glargine (Lantus) pen - multi-dose SQ SCH (21:24)
[2019-06-15 21:30] VITALS: BP 150/98
[2019-06-15] MEDS: cloNIDine 0.1 mg tablet PO SCH (21:30)
[2019-06-15] MEDS: imipramine 25mg tablet PO SCH (21:30)
[2019-06-15] MEDS: lamoTRIgine 100mg tablet PO SCH (21:30)
[2019-06-15] MEDS: ezetimibe 10mg tablet PO SCH (21:31)
[2019-06-15] MEDS: vitamin D (cholecalciferol) 1,000 unit tablet PO SCH (21:31)
[2019-06-16] VITALS: BP 152/88
[2019-06-16] MEDS: traMADol 50MG tablet PO SCH ×4 (00:47→23:35)
[2019-06-16] MEDS: benzonatate 100mg capsule PO SCH ×4 (00:47→23:33)
[2019-06-16] MEDS: normal saline 1000ml 1,000 ML IV SCH (00:48)
[2019-06-16] MEDS: HYDROcodone/acetaminophen 5mg/325mg tablet PO PRN ×5 (02:19→23:33)
[2019-06-16 04:57] LABS: BASOPHILS # (AUTO) 0.1 X10'3 (0-0.2); BASOPHILS % (AUTO) 0.5 % (0-1); EOSINOPHILS # (AUTO) 0.1 X10'3 (0-0.9); EOSINOPHILS % (AUTO) 0.8 % (0-6); HEMATOCRIT 34.6 % (35.0-45.0); LYMPHOCYTES % (AUTO) 11.7 % (21-51); MEAN CORPUSCULAR HEMOGLOBIN 27.9 PG (27.0-31.0); MEAN CORPUSCULAR HGB CONC 34.6 g/dL (33.0-36.5); MEAN CORPUSCULAR VOLUME 80.4 FL (78-98); MEAN PLATELET VOLUME 7.2 FL (7.4-10.4); MONOCYTES # (AUTO) 1.1 X10'3 (0-0.9); MONOCYTES % (AUTO) 6.5 % (2-12); NEUTROPHILS # (AUTO) 13.4 X10'3 (1.8-7.7); NEUTROPHILS % (AUTO) 80.5 % (42-75); PLATELET COUNT 468 X10'3 (140-440); RED CELL DISTRIBUTION WIDTH 15.1 % (11.5-14.5); WHITE BLOOD COUNT 16.7 X10'3 (4.5-11.0)
[2019-06-16 04:59] LABS: ALBUMIN 2.4 G/DL (3.4-5.0); ANION GAP 9 (8-16); BLOOD UREA NITROGEN 3 MG/DL (7-18); BUN/CREATININE RATIO 5.2 (6.6-38.0); CALCIUM 8.7 MG/DL (8.5-10.1); CHLORIDE 103 MMOL/L (99-107); CREATININE 0.58 MG/DL (0.40-0.90); GLUCOSE 69 MG/DL (70-104); POTASSIUM 3.1 MMOL/L (3.5-5.1); SODIUM 139 MMOL/L (135-145); TOTAL CARBON DIOXIDE 27.2 MMOL/L (24-32); eGFR > 90 ML/MIN
--- NOTE | 2019-06-16 06:30 | NUR ---
Problems reprioritized. Patient report given, questions answered & plan of care reviewed with SONIYA ARMAS.
--- NOTE | 2019-06-16 06:33 | NUR ---
Patient in room [facility]. I have received report from CHANDA Holbrook and had the opportunity to ask questions and assume patient care.
[2019-06-16 06:44] LABS: ANISOCYTOSIS 1+; PLATELET ESTIMATE INCREASED; POLYCHROMASIA 1+; TOTAL CELLS COUNTED 100; TOXIC GRANULATION 1+
[2019-06-16 06:45] LABS: LARGE PLATELETS FEW
[2019-06-16 07:00] VITALS: BP 192/101
[2019-06-16] MEDS: omega-3 acid ethyl esters 1GM capsule PO SCH (07:20)
[2019-06-16] MEDS: pantoprazole 40mg Tablet.DR PO SCH (07:20)
[2019-06-16] MEDS: venlafaxine 25mg tablet PO SCH ×3 (07:20→22:03)
[2019-06-16] MEDS: CefTRIAXone 2gm/D5W 50ml 50 ML IV SCH (07:20)
[2019-06-16] MEDS: multivitamins, therapeutics tablet PO SCH (07:21)
[2019-06-16] MEDS: busPIRone 15mg tablet PO SCH ×2 (07:21→19:18)
[2019-06-16] MEDS: atorvastatin 20mg tablet PO SCH (07:22)
[2019-06-16] MEDS: aspirin 81mg tablet.DR PO SCH (07:22)
[2019-06-16] MEDS: pregabalin 75mg capsule PO SCH ×3 (07:22→22:01)
[2019-06-16] MEDS: azithromycin 250mg tablet PO SCH (07:22)
[2019-06-16] MEDS: lisinopril 5mg tablet PO SCH (07:22)
[2019-06-16] MEDS: lurasidone 20mg tablet PO SCH (07:22)
[2019-06-16] MEDS: heparin, porcine 5000 units/ml vial SQ SCH ×2 (07:23→19:19)
[2019-06-16] MEDS: potassium Cl 20 mEq SR tablet PO PRN ×3 (07:27→16:27)
[2019-06-16 08:15] VITALS: BP 142/84
[2019-06-16 11:18] VITALS: BP 180/94
[2019-06-16] MEDS ORDERED: amLODIPine 5mg tablet PO ONE (12:05)
[2019-06-16] MEDS: cefepime 2g/NS 100ml ADVANTAGE 100 ML IV SCH ×2 (13:56→19:20)
[2019-06-16 18:15] VITALS: BP 180/95
--- NOTE | 2019-06-16 18:41 | NUR ---
Problems reprioritized. Patient report given, questions answered & plan of care reviewed with CHANDA Moore.
--- NOTE | 2019-06-16 18:45 | NUR ---
Patient in room [facility]. I have received report from CHANDA Paulino and had the opportunity to ask questions and assume patient care.
[2019-06-16] MEDS: insulin glargine (Lantus) pen - multi-dose SQ SCH (21:00)
[2019-06-16 22:00] VITALS: BP 163/86
[2019-06-16] MEDS: cloNIDine 0.1 mg tablet PO SCH (22:02)
[2019-06-16] MEDS: imipramine 25mg tablet PO SCH (22:02)
[2019-06-16] MEDS: lamoTRIgine 100mg tablet PO SCH (22:03)
[2019-06-16] MEDS: vitamin D (cholecalciferol) 1,000 unit tablet PO SCH (22:03)
[2019-06-16] MEDS: ezetimibe 10mg tablet PO SCH (22:04)
[2019-06-17 00:38] VITALS: BP 168/94
[2019-06-17 00:49] VITALS: BP 154/99
[2019-06-17] MEDS: HYDROcodone/acetaminophen 5mg/325mg tablet PO PRN ×4 (03:46→22:28)
[2019-06-17 05:15] LABS: BASOPHILS # (AUTO) 0.1 X10'3 (0-0.2); BASOPHILS % (AUTO) 0.4 % (0-1); EOSINOPHILS # (AUTO) 0.1 X10'3 (0-0.9); EOSINOPHILS % (AUTO) 0.7 % (0-6); HEMATOCRIT 36.2 % (35.0-45.0); HEMOGLOBIN 12.5 g/dl (12.0-16.0); LYMPHOCYTES # (AUTO) 1.1 X10'3 (1.1-4.8); LYMPHOCYTES % (AUTO) 8.3 % (21-51); MEAN CORPUSCULAR HEMOGLOBIN 27.9 PG (27.0-31.0); MEAN CORPUSCULAR HGB CONC 34.6 g/dL (33.0-36.5); MEAN CORPUSCULAR VOLUME 80.7 FL (78-98); MEAN PLATELET VOLUME 6.9 FL (7.4-10.4); MONOCYTES # (AUTO) 0.7 X10'3 (0-0.9); MONOCYTES % (AUTO) 5.1 % (2-12); NEUTROPHILS # (AUTO) 11.2 X10'3 (1.8-7.7); NEUTROPHILS % (AUTO) 85.5 % (42-75); PLATELET COUNT 551 X10'3 (140-440); RED BLOOD COUNT 4.48 X10'6 (4.20-5.60); RED CELL DISTRIBUTION WIDTH 15.4 % (11.5-14.5); WHITE BLOOD COUNT 13.1 X10'3 (4.5-11.0)
[2019-06-17 05:31] LABS: ALBUMIN 2.3 G/DL (3.4-5.0); ANION GAP 11 (8-16); BLOOD UREA NITROGEN 6 MG/DL (7-18); BUN/CREATININE RATIO 7.6 (6.6-38.0); CALCIUM 8.8 MG/DL (8.5-10.1); CHLORIDE 99 MMOL/L (99-107); CREATININE 0.79 MG/DL (0.40-0.90); GLUCOSE 187 MG/DL (70-104); POTASSIUM 3.8 MMOL/L (3.5-5.1); SODIUM 137 MMOL/L (135-145); TOTAL CARBON DIOXIDE 27.5 MMOL/L (24-32); eGFR 76 ML/MIN
--- NOTE | 2019-06-17 06:49 | NUR ---
Problems reprioritized. Patient report given, questions answered & plan of care reviewed with CHANDA Messina.
--- NOTE | 2019-06-17 07:03 | NUR ---
Patient in room [facility]. I have received report from CHANDA Moore and had the opportunity to ask questions and assume patient care.
[2019-06-17 08:00] VITALS: BP 166/100
[2019-06-17] MEDS: omega-3 acid ethyl esters 1GM capsule PO SCH (08:29)
[2019-06-17] MEDS: lurasidone 20mg tablet PO SCH (08:29)
[2019-06-17] MEDS: azithromycin 250mg tablet PO SCH (08:30)
[2019-06-17] MEDS: pantoprazole 40mg Tablet.DR PO SCH (08:30)
[2019-06-17] MEDS: venlafaxine 25mg tablet PO SCH ×3 (08:31→22:24)
[2019-06-17] MEDS: multivitamins, therapeutics tablet PO SCH (08:31)
[2019-06-17] MEDS: aspirin 81mg tablet.DR PO SCH (08:33)
[2019-06-17] MEDS: traMADol 50MG tablet PO SCH ×2 (08:33→16:00)
[2019-06-17] MEDS: atorvastatin 20mg tablet PO SCH (08:33)
[2019-06-17] MEDS: benzonatate 100mg capsule PO SCH ×2 (08:33→16:00)
[2019-06-17] MEDS: pregabalin 75mg capsule PO SCH ×3 (08:34→22:24)
[2019-06-17] MEDS: busPIRone 15mg tablet PO SCH ×2 (08:34→22:23)
[2019-06-17] MEDS: amLODIPine 5mg tablet PO SCH (08:34)
[2019-06-17] MEDS: lisinopril 5mg tablet PO SCH (08:35)
[2019-06-17] MEDS: heparin, porcine 5000 units/ml vial SQ SCH ×2 (08:36→22:33)
[2019-06-17] MEDS: cefepime 2g/NS 100ml ADVANTAGE 100 ML IV SCH ×2 (08:36→22:28)
[2019-06-17 11:00] VITALS: BP 134/97
--- NOTE | 2019-06-17 12:17 | NUR ---
pt. blood sugar was 202 right before lunch. will not be treating it at this time because pt. just ate mandarin oranges. will check blood sugar before dinner again. pt. does not meet protocol at this time.
[2019-06-17 18:00] VITALS: BP 151/93
--- NOTE | 2019-06-17 18:19 | NUR ---
Problems reprioritized. Patient report given, questions answered & plan of care reviewed with CHANDA Calvert.
[2019-06-17] MEDS: insulin Lispro (HumaLOG) vial - multi-dose SQ SCH (18:35)
[2019-06-17] MEDS: ezetimibe 10mg tablet PO SCH (22:23)
[2019-06-17] MEDS: imipramine 25mg tablet PO SCH (22:23)
[2019-06-17] MEDS: cloNIDine 0.1 mg tablet PO SCH (22:24)
[2019-06-17] MEDS: vitamin D (cholecalciferol) 1,000 unit tablet PO SCH (22:24)
[2019-06-17] MEDS: temazepam 15mg capsule PO PRN (22:24)
[2019-06-17] MEDS: lamoTRIgine 100mg tablet PO SCH (22:25)
[2019-06-17] MEDS: insulin glargine (Lantus) pen - multi-dose SQ SCH (22:41)
[2019-06-18] VITALS: BP 134/91
[2019-06-18] MEDS: HYDROcodone/acetaminophen 5mg/325mg tablet PO PRN ×5 (02:49→20:22)
[2019-06-18 05:23] LABS: BASOPHILS % (AUTO) 0.3 % (0-1); EOSINOPHILS # (AUTO) 0.1 X10'3 (0-0.9); EOSINOPHILS % (AUTO) 1.1 % (0-6); MEAN PLATELET VOLUME 6.6 FL (7.4-10.4)
[2019-06-18 05:25] LABS: HEMATOCRIT 36.8 % (35.0-45.0); HEMOGLOBIN 12.8 g/dl (12.0-16.0); LYMPHOCYTES # (AUTO) 1.6 X10'3 (1.1-4.8); LYMPHOCYTES % (AUTO) 12.6 % (21-51); MEAN CORPUSCULAR HEMOGLOBIN 28.1 PG (27.0-31.0); MEAN CORPUSCULAR HGB CONC 34.7 g/dL (33.0-36.5); MONOCYTES # (AUTO) 0.9 X10'3 (0-0.9); MONOCYTES % (AUTO) 7.2 % (2-12); NEUTROPHILS # (AUTO) 10.3 X10'3 (1.8-7.7); NEUTROPHILS % (AUTO) 78.8 % (42-75); PLATELET COUNT 637 X10'3 (140-440); RED BLOOD COUNT 4.55 X10'6 (4.20-5.60); RED CELL DISTRIBUTION WIDTH 15.6 % (11.5-14.5)
[2019-06-18 05:36] LABS: ALBUMIN 2.4 G/DL (3.4-5.0); ANION GAP 8 (8-16); BLOOD UREA NITROGEN 11 MG/DL (7-18); BUN/CREATININE RATIO 15.5 (6.6-38.0); CALCIUM 9.2 MG/DL (8.5-10.1); CHLORIDE 102 MMOL/L (99-107); CREATININE 0.71 MG/DL (0.40-0.90); GLUCOSE 73 MG/DL (70-104); POTASSIUM 3.7 MMOL/L (3.5-5.1); SODIUM 139 MMOL/L (135-145); TOTAL CARBON DIOXIDE 29.3 MMOL/L (24-32); eGFR 86 ML/MIN
[2019-06-18 06:17] LABS: ANISOCYTOSIS 1+; PLATELET ESTIMATE INCREASED; POLYCHROMASIA 1+; TOTAL CELLS COUNTED 100
[2019-06-18 06:18] LABS: TOXIC GRANULATION 2+; TOXIC VACUOLATION FEW
--- NOTE | 2019-06-18 06:26 | NUR ---
Problems reprioritized. Patient report given, questions answered & plan of care reviewed with Adelia ARMAS.
[2019-06-18 07:00] VITALS: BP 183/85
[2019-06-18] MEDS: traMADol 50MG tablet PO SCH ×3 (07:26→16:00)
[2019-06-18] MEDS: omega-3 acid ethyl esters 1GM capsule PO SCH (07:26)
[2019-06-18] MEDS: benzonatate 100mg capsule PO SCH ×3 (07:26→16:27)
[2019-06-18] MEDS: lurasidone 20mg tablet PO SCH (07:26)
[2019-06-18] MEDS: venlafaxine 25mg tablet PO SCH ×3 (07:27→20:22)
[2019-06-18] MEDS: pregabalin 75mg capsule PO SCH ×3 (07:27→20:22)
[2019-06-18] MEDS: busPIRone 15mg tablet PO SCH ×2 (07:27→20:23)
[2019-06-18] MEDS: azithromycin 250mg tablet PO SCH (07:27)
[2019-06-18] MEDS: atorvastatin 20mg tablet PO SCH (07:27)
[2019-06-18] MEDS: multivitamins, therapeutics tablet PO SCH (07:27)
[2019-06-18] MEDS: aspirin 81mg tablet.DR PO SCH (07:27)
[2019-06-18] MEDS: lisinopril 5mg tablet PO SCH (07:27)
[2019-06-18] MEDS: pantoprazole 40mg Tablet.DR PO SCH (07:27)
[2019-06-18] MEDS: heparin, porcine 5000 units/ml vial SQ SCH ×2 (07:28→20:23)
[2019-06-18] MEDS: cefepime 2g/NS 100ml ADVANTAGE 100 ML IV SCH ×2 (07:28→20:23)
[2019-06-18] MEDS: amLODIPine 5mg tablet PO SCH (07:28)
[2019-06-18] MEDS: insulin Lispro (HumaLOG) vial - multi-dose SQ SCH ×2 (09:01→18:50)
[2019-06-18 10:00] VITALS: BP 122/84
[2019-06-18 11:00] VITALS: BP 139/78
[2019-06-18 18:00] VITALS: BP 146/82
--- NOTE | 2019-06-18 18:22 | NUR ---
Problems reprioritized. Patient report given, questions answered & plan of care reviewed with elder dee.
[2019-06-18] MEDS: ezetimibe 10mg tablet PO SCH (20:22)
[2019-06-18] MEDS: temazepam 15mg capsule PO PRN (20:22)
[2019-06-18] MEDS: cloNIDine 0.1 mg tablet PO SCH (20:23)
[2019-06-18] MEDS: vitamin D (cholecalciferol) 1,000 unit tablet PO SCH (20:23)
[2019-06-18] MEDS: imipramine 25mg tablet PO SCH (20:23)
[2019-06-18] MEDS: lamoTRIgine 100mg tablet PO SCH (20:23)
[2019-06-18] MEDS: insulin glargine (Lantus) pen - multi-dose SQ SCH (21:00)
[2019-06-19] VITALS: BP 124/86
[2019-06-19] MEDS: HYDROcodone/acetaminophen 5mg/325mg tablet PO PRN ×3 (01:04→10:43)
[2019-06-19 05:59] LABS: ALBUMIN 2.2 G/DL (3.4-5.0); ANION GAP 7 (8-16); BLOOD UREA NITROGEN 17 MG/DL (7-18); BUN/CREATININE RATIO 21.5 (6.6-38.0); CALCIUM 8.8 MG/DL (8.5-10.1); CHLORIDE 105 MMOL/L (99-107); CREATININE 0.79 MG/DL (0.40-0.90); GLUCOSE 151 MG/DL (70-104); POTASSIUM 4.5 MMOL/L (3.5-5.1); SODIUM 140 MMOL/L (135-145); TOTAL CARBON DIOXIDE 27.9 MMOL/L (24-32); eGFR 76 ML/MIN
[2019-06-19 06:12] LABS: BASOPHILS % (AUTO) 0.4 % (0-1); EOSINOPHILS # (AUTO) 0.1 X10'3 (0-0.9); EOSINOPHILS % (AUTO) 0.7 % (0-6); MEAN PLATELET VOLUME 6.8 FL (7.4-10.4); MONOCYTES # (AUTO) 0.9 X10'3 (0-0.9); RED BLOOD COUNT 4.24 X10'6 (4.20-5.60); RED CELL DISTRIBUTION WIDTH 15.5 % (11.5-14.5)
[2019-06-19 06:14] LABS: HEMATOCRIT 34.1 % (35.0-45.0); HEMOGLOBIN 11.9 g/dl (12.0-16.0); LYMPHOCYTES # (AUTO) 1.9 X10'3 (1.1-4.8); LYMPHOCYTES % (AUTO) 17.1 % (21-51); MEAN CORPUSCULAR HEMOGLOBIN 28.1 PG (27.0-31.0); MEAN CORPUSCULAR HGB CONC 34.9 g/dL (33.0-36.5); MEAN CORPUSCULAR VOLUME 80.5 FL (78-98); MONOCYTES % (AUTO) 8.4 % (2-12); NEUTROPHILS % (AUTO) 73.4 % (42-75); PLATELET COUNT 645 X10'3 (140-440); WHITE BLOOD COUNT 10.9 X10'3 (4.5-11.0)
--- NOTE | 2019-06-19 06:24 | NUR ---
Problems reprioritized. Patient report given, questions answered & plan of care reviewed with Adelia ARMAS.
[2019-06-19 07:00] VITALS: BP 113/73
[2019-06-19] MEDS: pantoprazole 40mg Tablet.DR PO SCH (07:11)
[2019-06-19] MEDS: atorvastatin 20mg tablet PO SCH (07:11)
[2019-06-19] MEDS: azithromycin 250mg tablet PO SCH (07:11)
[2019-06-19] MEDS: multivitamins, therapeutics tablet PO SCH (07:11)
[2019-06-19] MEDS: lurasidone 20mg tablet PO SCH (07:11)
[2019-06-19] MEDS: venlafaxine 25mg tablet PO SCH ×2 (07:11→12:56)
[2019-06-19] MEDS: omega-3 acid ethyl esters 1GM capsule PO SCH (07:12)
[2019-06-19] MEDS: busPIRone 15mg tablet PO SCH (07:12)
[2019-06-19] MEDS: pregabalin 75mg capsule PO SCH ×2 (07:12→12:56)
[2019-06-19] MEDS: benzonatate 100mg capsule PO SCH ×2 (07:12)
[2019-06-19] MEDS: heparin, porcine 5000 units/ml vial SQ SCH (07:12)
[2019-06-19] MEDS: lisinopril 5mg tablet PO SCH (07:12)
[2019-06-19] MEDS: aspirin 81mg tablet.DR PO SCH (07:12)
[2019-06-19] MEDS: cefepime 2g/NS 100ml ADVANTAGE 100 ML IV SCH (07:12)
[2019-06-19] MEDS: amLODIPine 5mg tablet PO SCH (07:12)
[2019-06-19] MEDS: traMADol 50MG tablet PO SCH ×2 (07:27)
[2019-06-19] MEDS: insulin Lispro (HumaLOG) vial - multi-dose SQ SCH (08:58)
[2019-06-19 11:22] VITALS: BP 123/76
[2019-06-19] MEDS ORDERED: CEFD300C3 PO (14:02)
--- NOTE | 2019-06-19 15:02 | NUR ---
F/u for DM consult: Pt now A/O x4 seen at bedside. Pt reports she sees her PCP q 2-3 months for DM management however would like to look in to getting an lead teacher. Pt states she takes her DM meds per rx however doesn't check her BG levels. Pt provided with written and verbal protein and DM education with referral to outpatient DM class and RD contact information. Pt endorses a good appetite which is evident with documented 75-100% PO intake on heart healthy CHO controlled diet. Pt denies food allergies and reports difficulty chewing d/t missing teeth however denies texture modification at this time. Pt denies constipation/diarrhea and reports LBM this morning. Pt pending discharge. Will continue to follow. Recommendations: 1) Continue heart healthy CHO controlled diet 2) Bowel care PRN 3) Wt per rx Addendum: 06/19/19 at [address] Amended: Links added.
--- NOTE | 2019-06-19 15:25 | NUR ---
PT DISCHARGED IN STABLE CONDITION. LEFT FACILITY IN PRIVATE VEHICLE WITH . IV DC CANULA INTACT. ALL BELONGINGS IN HAND. FOLLOW UP INSTRUCTIONS GIVEN, ALL QUESTIONS ANSWERED. Addendum: 06/19/19 at 1528 by Shelly Hawkins RN Amended: Links added.
== END 2019-06-19 15:30 | disposition home or self-care (01) | DRG 871 ==
LOC: ER 13:20 → ED HOLD 15:50 → EDBEDREQ 16:58 → CMPBEDREQ 16:59 → SUR 3N 18:05
PROVIDERS: ADMIT Family Medicine; ATTEND Family Medicine
PROC: B32T1ZZ Computerized Tomography (CT Scan) of Left Pulmonary Artery using Low Osmolar Contrast (ICD-10-PCS; principal; 2019-06-15)
PROC: B3201ZZ Computerized Tomography (CT Scan) of Thoracic Aorta using Low Osmolar Contrast (ICD-10-PCS; 2019-06-15)
PROC: B32S1ZZ Computerized Tomography (CT Scan) of Right Pulmonary Artery using Low Osmolar Contrast (ICD-10-PCS; 2019-06-15)
DX: A41.9 Sepsis, unspecified organism (principal); J18.9 Pneumonia, unspecified organism; R04.2 Hemoptysis; R79.89 Other specified abnormal findings of blood chemistry; E11.9 Type 2 diabetes mellitus without complications; E78.00 Pure hypercholesterolemia, unspecified; E78.5 Hyperlipidemia, unspecified; E87.6 Hypokalemia; F31.9 Bipolar disorder, unspecified; F12.90 Cannabis use, unspecified, uncomplicated; F41.9 Anxiety disorder, unspecified; K57.90 Diverticulosis of intestine, part unspecified, without perforation or abscess without bleeding; G89.29 Other chronic pain; K21.9 Gastro-esophageal reflux disease without esophagitis; N28.9 Disorder of kidney and ureter, unspecified; R74.8 Abnormal levels of other serum enzymes; I10 Essential (primary) hypertension; Z87.442 Personal history of urinary calculi; Z87.891 Personal history of nicotine dependence; Z90.49 Acquired absence of other specified parts of digestive tract; Z90.710 Acquired absence of both cervix and uterus; Z88.1 Allergy status to other antibiotic agents; Z88.0 Allergy status to penicillin
CPT/HCPCS: 36415; 71045; 71046; 71275; 80048; 80053; 82948; 83036; 83605; 84145; 85025; 87040; 87070; 87077; 87081; 93005; 99285; G0378; J0456; J0692; J0696; J1644; J1815; J2405; J7030; Q9967

== ENCOUNTER 2019-06-29 12:29 | Emergency (ER) | payer MEDICARE, MEDICAID ==
[~2019-06-29] VITALS: Ht 170.2 cm; Wt 70.0 kg
[~2019-06-29 12:29] MED LIST changes: +BENZ-49 PO; +CEFD300C3 PO; -DOXY100C5 PO; -ESTR-42 PO; -LURA40TA3 PO; +LURA80TA3 PO; -PREG150C PO; +PREG150C46 PO; -PREG300C PO
[2019-06-29 13:37] LABS: EOSINOPHILS # (AUTO) 0.1 X10'3 (0-0.9); HEMOGLOBIN 11.9 g/dl (12.0-16.0); MONOCYTES # (AUTO) 0.7 X10'3 (0-0.9); NEUTROPHILS # (AUTO) 4.4 X10'3 (1.8-7.7); WHITE BLOOD COUNT 7.6 X10'3 (4.5-11.0)
[2019-06-29 13:39] LABS: BASOPHILS # (AUTO) 0.1 X10'3 (0-0.2); BASOPHILS % (AUTO) 0.8 % (0-1); EOSINOPHILS % (AUTO) 1.6 % (0-6); HEMATOCRIT 34.6 % (35.0-45.0); LYMPHOCYTES # (AUTO) 2.4 X10'3 (1.1-4.8); MEAN CORPUSCULAR HEMOGLOBIN 27.9 PG (27.0-31.0); MEAN CORPUSCULAR HGB CONC 34.5 g/dL (33.0-36.5); MEAN CORPUSCULAR VOLUME 80.7 FL (78-98); MEAN PLATELET VOLUME 6.8 FL (7.4-10.4); MONOCYTES % (AUTO) 9.3 % (2-12); NEUTROPHILS % (AUTO) 57.3 % (42-75); PLATELET COUNT 784 X10'3 (140-440); RED BLOOD COUNT 4.28 X10'6 (4.20-5.60); RED CELL DISTRIBUTION WIDTH 14.8 % (11.5-14.5)
[2019-06-29] MEDS ORDERED: normal saline 1000ml 1,000 ML IV ONE (13:50)
[2019-06-29] MEDS ORDERED: ketorolac tromethamine 15mg/ml inj. IV ONE (13:50)
[2019-06-29 13:55] LABS: ALANINE AMINOTRANSFERASE 36 U/L (12-78); ALBUMIN 3.3 G/DL (3.4-5.0); ALBUMIN/GLOBULIN RATIO 0.8 (1.1-1.5); ALKALINE PHOSPHATASE 121 IU/L (46-116); ANION GAP 11 (8-16); ASPARTATE AMINO TRANSFERASE 24 U/L (10-37); BILIRUBIN,TOTAL 0.3 MG/DL (0.1-1.0); BLOOD UREA NITROGEN 10 MG/DL (7-18); BUN/CREATININE RATIO 12.8 (6.6-38.0); CALCIUM 9.5 MG/DL (8.5-10.1); CHLORIDE 104 MMOL/L (99-107); CREATININE 0.78 MG/DL (0.40-0.90); GLUCOSE 202 MG/DL (70-104); SODIUM 141 MMOL/L (135-145); TOTAL CARBON DIOXIDE 26.3 MMOL/L (24-32); TOTAL PROTEIN 7.6 G/DL (6.4-8.2); eGFR 77 ML/MIN
[2019-06-29 15:33] VITALS: BP 133/95
== END 2019-06-29 15:50 | disposition home or self-care (01) ==
LOC: ER 12:38
DX: J40 Bronchitis, not specified as acute or chronic (principal); R19.7 Diarrhea, unspecified; R41.0 Disorientation, unspecified; E78.00 Pure hypercholesterolemia, unspecified; I10 Essential (primary) hypertension; K21.9 Gastro-esophageal reflux disease without esophagitis; E11.9 Type 2 diabetes mellitus without complications; G89.29 Other chronic pain; F12.90 Cannabis use, unspecified, uncomplicated; F17.210 Nicotine dependence, cigarettes, uncomplicated; Z90.49 Acquired absence of other specified parts of digestive tract; Z98.890 Other specified postprocedural states; Z90.710 Acquired absence of both cervix and uterus; Z88.1 Allergy status to other antibiotic agents; Z88.0 Allergy status to penicillin; Z79.82 Long term (current) use of aspirin; Z79.899 Other long term (current) drug therapy; Z79.4 Long term (current) use of insulin
CPT/HCPCS: 36415; 71046; 80053; 83605; 83880; 84145; 84484; 85025; 87040; 87502; 87503; 93005; 96361; 96374; 99284; J1885; J7030

== ENCOUNTER 2019-11-12 07:33 | Emergency (ER) | payer MEDICARE, MEDICAID ==
[~2019-11-12] VITALS: Ht 170.2 cm; Wt 73.6 kg
[~2019-11-12 07:33] MED LIST changes: -CEFD300C3 PO; -EZET10TA21 PO; +EZET10TA6 PO; -OMEP-297 PO; +OMEP20CA15 PO
[2019-11-12] MEDS ORDERED: morphine 4 MG/ML inj SYRINge IV PRN (08:15)
[2019-11-12] MEDS ORDERED: ondansetron/PF 4mg/2ml inj IV ONE (08:15)
[2019-11-12] MEDS ORDERED: normal saline 1000ML IV soln IVB ONE (08:15)
--- NOTE | 2019-11-12 08:28 | NUR ---
pt out to ct via wheelchair with structural manager
[2019-11-12 08:30] LABS: CLARITY,URINE SLIGHTLY CLOUDY (Clear); COLOR,URINE YELLOW (Yellow); GLUCOSE, URINE >=1000 mg/dl (Neg); KETONES,URINE NEGATIVE (Neg); LEUKOCYTE ESTERASE ,URINE NEGATIVE (Neg); NITRITES, URINE NEGATIVE (Neg); OCCULT BLOOD,URINE NEGATIVE (Neg); PROTEIN,URINE NEGATIVE (Neg); UROBILINOGEN,URINE 0.2 E.U/dL (0.2-1.0)
[2019-11-12 08:32] LABS: UA COLLECTION TYPE CLN CATCH MIDSTREAM
[2019-11-12 08:33] LABS: BASOPHILS % (AUTO) 0.4 % (0-1); EOSINOPHILS # (AUTO) 0.1 X10'3 (0-0.9); EOSINOPHILS % (AUTO) 0.9 % (0-6); HEMATOCRIT 37.8 % (35.0-45.0); HEMOGLOBIN 12.9 g/dl (12.0-16.0); LYMPHOCYTES # (AUTO) 0.8 X10'3 (1.1-4.8); LYMPHOCYTES % (AUTO) 8.8 % (21-51); MEAN CORPUSCULAR HEMOGLOBIN 27.1 PG (27.0-31.0); MEAN CORPUSCULAR HGB CONC 34.1 g/dL (33.0-36.5); MEAN CORPUSCULAR VOLUME 79.4 FL (78-98); MEAN PLATELET VOLUME 7.4 FL (7.4-10.4); MONOCYTES # (AUTO) 0.8 X10'3 (0-0.9); MONOCYTES % (AUTO) 8.6 % (2-12); NEUTROPHILS # (AUTO) 7.7 X10'3 (1.8-7.7); NEUTROPHILS % (AUTO) 81.3 % (42-75); PLATELET COUNT 352 X10'3 (140-440); RED BLOOD COUNT 4.76 X10'6 (4.20-5.60); RED CELL DISTRIBUTION WIDTH 14.5 % (11.5-14.5); WHITE BLOOD COUNT 9.5 X10'3 (4.5-11.0)
[2019-11-12 08:35] LABS: BACTERIA,URINE FEW /HPF (Neg); MUCUS STRANDS NONE SEEN /LPF (Neg); RBC,URINE 0-2 /HPF (0-2); SQUAMOUS EPITHELIAL CELL,UR FEW /LPF (FEW); WBC,URINE 0-4 /HPF (0-4)
--- NOTE | 2019-11-12 08:36 | NUR ---
PT RETURNS FROM CT
[2019-11-12 08:47] LABS: ALANINE AMINOTRANSFERASE 16 U/L (12-78); ALBUMIN/GLOBULIN RATIO 0.9 (1.1-1.5); ALKALINE PHOSPHATASE 73 IU/L (46-116); ANION GAP 5 (8-16); ASPARTATE AMINO TRANSFERASE 14 U/L (10-37); BILIRUBIN,TOTAL 0.2 MG/DL (0.1-1.0); BLOOD UREA NITROGEN 10 MG/DL (7-18); BUN/CREATININE RATIO 11.9 (6.6-38.0); CALCIUM 8.5 MG/DL (8.5-10.1); CHLORIDE 102 MMOL/L (99-107); CREATININE 0.84 MG/DL (0.40-0.90); GLUCOSE 197 MG/DL (70-104); LIPASE 1157 U/L (73-393); POTASSIUM 4.4 MMOL/L (3.5-5.1); SODIUM 134 MMOL/L (135-145); TOTAL CARBON DIOXIDE 26.9 MMOL/L (24-32); TOTAL PROTEIN 6.5 G/DL (6.4-8.2); eGFR 71 ML/MIN
[2019-11-12] MEDS ORDERED: HYDR-4353 PO (09:13)
[2019-11-12] MEDS ORDERED: HYDROcodone/acetaminophen 10/325mg tab PO ONE (09:15)
[2019-11-12 10:29] VITALS: BP 127/86
[2019-11-13] MEDS ORDERED: PROM12.512 PO (18:35)
== END 2019-11-12 10:30 | disposition home or self-care (01) ==
LOC: ER 07:34
DX: K85.90 Acute pancreatitis without necrosis or infection, unspecified (principal); R11.2 Nausea with vomiting, unspecified; E78.00 Pure hypercholesterolemia, unspecified; I10 Essential (primary) hypertension; K21.9 Gastro-esophageal reflux disease without esophagitis; E11.9 Type 2 diabetes mellitus without complications; G89.29 Other chronic pain; F41.9 Anxiety disorder, unspecified; F31.9 Bipolar disorder, unspecified; F12.90 Cannabis use, unspecified, uncomplicated; Z90.49 Acquired absence of other specified parts of digestive tract; Z90.710 Acquired absence of both cervix and uterus; Z98.890 Other specified postprocedural states; Z87.891 Personal history of nicotine dependence; Z88.8 Allergy status to other drugs, medicaments and biological substances; Z79.82 Long term (current) use of aspirin; Z79.4 Long term (current) use of insulin; Z79.899 Other long term (current) drug therapy
CPT/HCPCS: 36415; 74176; 80053; 81001; 83690; 85025; 96361; 96374; 96375; 99284; J2270; J2405; J7030

== ENCOUNTER 2019-11-13 17:34 | Emergency (ER) | payer MEDICARE, MEDICAID ==
[~2019-11-13] VITALS: Ht 170.2 cm; Wt 73.6 kg
[~2019-11-13 17:34] MED LIST changes: +HYDR-4353 PO
[2019-11-13] MEDS ORDERED: ondansetron/PF 4mg/2ml inj IV ONE (17:45)
[2019-11-13] MEDS ORDERED: normal saline 1000ML IV soln IVB ONE (17:45)
[2019-11-13] MEDS: morphine 4 MG/ML inj SYRINge IV PRN ×2 (18:01→18:43)
[2019-11-13 18:10] LABS: BASOPHILS % (AUTO) 0.4 % (0-1); EOSINOPHILS # (AUTO) 0.1 X10'3 (0-0.9); EOSINOPHILS % (AUTO) 2.4 % (0-6); HEMATOCRIT 41.3 % (35.0-45.0); HEMOGLOBIN 14.1 g/dl (12.0-16.0); MEAN CORPUSCULAR HEMOGLOBIN 27.4 PG (27.0-31.0); MEAN CORPUSCULAR HGB CONC 34.1 g/dL (33.0-36.5); MEAN CORPUSCULAR VOLUME 80.3 FL (78-98); MEAN PLATELET VOLUME 7.5 FL (7.4-10.4); MONOCYTES # (AUTO) 0.9 X10'3 (0-0.9); MONOCYTES % (AUTO) 15.3 % (2-12); NEUTROPHILS # (AUTO) 3.8 X10'3 (1.8-7.7); NEUTROPHILS % (AUTO) 64.9 % (42-75); PLATELET COUNT 426 X10'3 (140-440); RED BLOOD COUNT 5.14 X10'6 (4.20-5.60); WHITE BLOOD COUNT 5.8 X10'3 (4.5-11.0)
[2019-11-13 18:17] LABS: ALANINE AMINOTRANSFERASE 19 U/L (12-78); ALBUMIN 3.2 G/DL (3.4-5.0); ALBUMIN/GLOBULIN RATIO 0.8 (1.1-1.5); ALKALINE PHOSPHATASE 102 IU/L (46-116); ANION GAP 11 (8-16); ASPARTATE AMINO TRANSFERASE 20 U/L (10-37); BILIRUBIN,TOTAL 0.4 MG/DL (0.1-1.0); BLOOD UREA NITROGEN 7 MG/DL (7-18); BUN/CREATININE RATIO 8.2 (6.6-38.0); CALCIUM 8.8 MG/DL (8.5-10.1); CHLORIDE 100 MMOL/L (99-107); CREATININE 0.85 MG/DL (0.40-0.90); GLUCOSE 147 MG/DL (70-104); LIPASE 528 U/L (73-393); POTASSIUM 4.3 MMOL/L (3.5-5.1); SODIUM 134 MMOL/L (135-145); TOTAL CARBON DIOXIDE 23.1 MMOL/L (24-32); TOTAL PROTEIN 7.1 G/DL (6.4-8.2); eGFR 70 ML/MIN
[2019-11-13] MEDS ORDERED: proCHLORperazine 10 MG/2 ml inj IV ONE (18:35)
[2019-11-13] MEDS ORDERED: PROM12.512 PO (18:35)
[2019-11-13 18:56] VITALS: BP 121/75
[2019-11-13 18:56] LABS: PLATELET ESTIMATE NORMAL; TOTAL CELLS COUNTED 100
== END 2019-11-13 19:11 | disposition home or self-care (01) ==
LOC: ER 17:36
DX: K85.90 Acute pancreatitis without necrosis or infection, unspecified (principal); R11.2 Nausea with vomiting, unspecified; E86.0 Dehydration; E78.00 Pure hypercholesterolemia, unspecified; I10 Essential (primary) hypertension; K21.9 Gastro-esophageal reflux disease without esophagitis; E11.9 Type 2 diabetes mellitus without complications; G89.29 Other chronic pain; F41.9 Anxiety disorder, unspecified; F12.90 Cannabis use, unspecified, uncomplicated; F31.9 Bipolar disorder, unspecified; Z90.49 Acquired absence of other specified parts of digestive tract; Z90.710 Acquired absence of both cervix and uterus; Z87.891 Personal history of nicotine dependence; Z72.89 Other problems related to lifestyle; Z88.8 Allergy status to other drugs, medicaments and biological substances; Z79.82 Long term (current) use of aspirin; Z79.4 Long term (current) use of insulin; Z79.899 Other long term (current) drug therapy
CPT/HCPCS: 36415; 80053; 83690; 85025; 96374; 96375; 96376; 99284; J0780; J2270; J2405; J7030

== ENCOUNTER 2019-11-15 16:16 | Emergency (ER) | payer MEDICARE, MEDICAID ==
[~2019-11-15] VITALS: Ht 172.7 cm; Wt 90.0 kg
[~2019-11-15 16:16] MED LIST changes: +PROM12.512 PO
[2019-11-15] MEDS ORDERED: mag hydrox/Alum hydrox/simeth 30ml oral suspension PO ONE (17:25)
[2019-11-15] MEDS ORDERED: LIDOcaine Viscous 15ml cup TP ONE (17:25)
[2019-11-15 17:37] LABS: BASOPHILS % (AUTO) 0.2 % (0-1); EOSINOPHILS # (AUTO) 0.1 X10'3 (0-0.9); EOSINOPHILS % (AUTO) 1.6 % (0-6); HEMATOCRIT 35.4 % (35.0-45.0); HEMOGLOBIN 12.1 g/dl (12.0-16.0); LYMPHOCYTES # (AUTO) 1.9 X10'3 (1.1-4.8); LYMPHOCYTES % (AUTO) 26.6 % (21-51); MEAN CORPUSCULAR HEMOGLOBIN 26.8 PG (27.0-31.0); MEAN CORPUSCULAR HGB CONC 34.3 g/dL (33.0-36.5); MEAN CORPUSCULAR VOLUME 78.1 FL (78-98); MEAN PLATELET VOLUME 7.2 FL (7.4-10.4); MONOCYTES % (AUTO) 13.5 % (2-12); NEUTROPHILS # (AUTO) 4.2 X10'3 (1.8-7.7); NEUTROPHILS % (AUTO) 58.1 % (42-75); PLATELET COUNT 398 X10'3 (140-440); RED BLOOD COUNT 4.53 X10'6 (4.20-5.60); RED CELL DISTRIBUTION WIDTH 14.8 % (11.5-14.5); WHITE BLOOD COUNT 7.2 X10'3 (4.5-11.0)
[2019-11-15 17:38] LABS: CLARITY,URINE CLEAR (Clear); COLOR,URINE STRAW (Yellow); GLUCOSE, URINE 250 mg/dl (Neg); KETONES,URINE NEGATIVE (Neg); LEUKOCYTE ESTERASE ,URINE NEGATIVE (Neg); NITRITES, URINE NEGATIVE (Neg); OCCULT BLOOD,URINE NEGATIVE (Neg); PROTEIN,URINE NEGATIVE (Neg); UROBILINOGEN,URINE 0.2 E.U/dL (0.2-1.0)
[2019-11-15 17:46] LABS: UA COLLECTION TYPE CLN CATCH MIDSTREAM
[2019-11-15] MEDS ORDERED: normal saline 1000ML IV soln IVB ONE (17:50)
[2019-11-15] MEDS ORDERED: ondansetron/PF 4mg/2ml inj IV ONE (17:50)
[2019-11-15] MEDS ORDERED: morphine 4 MG/ML inj SYRINge IV ONE (17:50)
[2019-11-15 17:51] LABS: ALANINE AMINOTRANSFERASE 20 U/L (12-78); ALBUMIN 2.9 G/DL (3.4-5.0); ALBUMIN/GLOBULIN RATIO 0.9 (1.1-1.5); ALKALINE PHOSPHATASE 79 IU/L (46-116); ANION GAP 9 (8-16); ASPARTATE AMINO TRANSFERASE 19 U/L (10-37); BILIRUBIN,TOTAL 0.2 MG/DL (0.1-1.0); BLOOD UREA NITROGEN 6 MG/DL (7-18); BUN/CREATININE RATIO 7.1 (6.6-38.0); CALCIUM 8.5 MG/DL (8.5-10.1); CHLORIDE 101 MMOL/L (99-107); CREATININE 0.85 MG/DL (0.40-0.90); GLUCOSE 179 MG/DL (70-104); LIPASE 701 U/L (73-393); POTASSIUM 3.8 MMOL/L (3.5-5.1); SODIUM 134 MMOL/L (135-145); TOTAL CARBON DIOXIDE 24.3 MMOL/L (24-32); TOTAL PROTEIN 6.2 G/DL (6.4-8.2); eGFR 70 ML/MIN
[2019-11-15] MEDS ORDERED: ketorolac tromethamine 15mg/ml inj. IV ONE (19:00)
[2019-11-15 19:13] VITALS: BP 141/82
== END 2019-11-15 19:10 | disposition home or self-care (01) ==
LOC: ER 16:17
DX: K85.90 Acute pancreatitis without necrosis or infection, unspecified (principal); R19.7 Diarrhea, unspecified; E78.00 Pure hypercholesterolemia, unspecified; I10 Essential (primary) hypertension; K21.9 Gastro-esophageal reflux disease without esophagitis; E11.9 Type 2 diabetes mellitus without complications; G89.29 Other chronic pain; F41.9 Anxiety disorder, unspecified; F31.9 Bipolar disorder, unspecified; F12.90 Cannabis use, unspecified, uncomplicated; Z90.49 Acquired absence of other specified parts of digestive tract; Z90.710 Acquired absence of both cervix and uterus; Z87.442 Personal history of urinary calculi; Z88.1 Allergy status to other antibiotic agents; Z79.82 Long term (current) use of aspirin; Z79.899 Other long term (current) drug therapy; Z79.4 Long term (current) use of insulin; Z87.891 Personal history of nicotine dependence
CPT/HCPCS: 36415; 80053; 81003; 83690; 85025; 96361; 96374; 96375; 99284; J1885; J2270; J2405; J7030

== ENCOUNTER 2020-03-22 15:36 | Emergency (ER) | payer MEDICARE, MEDICAID ==
[~2020-03-22] VITALS: Ht 170.2 cm; Wt 69.1 kg
[~2020-03-22 15:36] MED LIST changes: -HYDR-4353 PO; +MULT-620 PO; -MULT1TAB74 PO
[2020-03-22 15:58] VITALS: BP 182/106
== END 2020-03-22 16:25 | disposition home or self-care (01) ==
LOC: ER 15:37
DX: H92.01 Otalgia, right ear (principal); R51 Headache; E78.00 Pure hypercholesterolemia, unspecified; I10 Essential (primary) hypertension; K21.9 Gastro-esophageal reflux disease without esophagitis; E11.9 Type 2 diabetes mellitus without complications; G89.29 Other chronic pain; F41.9 Anxiety disorder, unspecified; F31.9 Bipolar disorder, unspecified; F12.90 Cannabis use, unspecified, uncomplicated; Z90.49 Acquired absence of other specified parts of digestive tract; Z90.710 Acquired absence of both cervix and uterus; Z98.890 Other specified postprocedural states; Z88.0 Allergy status to penicillin; Z88.8 Allergy status to other drugs, medicaments and biological substances; Z79.82 Long term (current) use of aspirin; Z79.4 Long term (current) use of insulin; Z79.899 Other long term (current) drug therapy
CPT/HCPCS: 99281

== ENCOUNTER 2021-12-23 17:16 | Emergency (ER) | payer MEDICARE, MEDICAID ==
[~2021-12-23] VITALS: Ht 170.2 cm; Wt 65.5 kg
[~2021-12-23 17:16] MED LIST changes: -LISI-604 PO; +LISI5TAB22 PO; +LURA80TA2 PO; -LURA80TA3 PO
[2021-12-23 17:40] LABS: URINE HCG NEGATIVE (NEG)
[2021-12-23 17:47] LABS: CLARITY,URINE CLEAR (Clear); COLOR,URINE YELLOW (Yellow); GLUCOSE, URINE >=1000 mg/dl (Neg); KETONES,URINE NEGATIVE (Neg); LEUKOCYTE ESTERASE ,URINE NEGATIVE (Neg); NITRITES, URINE NEGATIVE (Neg); OCCULT BLOOD,URINE NEGATIVE (Neg); PH,URINE 5.5 (4.8-8.0); PROTEIN,URINE NEGATIVE (Neg); UROBILINOGEN,URINE 0.2 E.U/dL (0.2-1.0)
[2021-12-23 17:49] LABS: UA COLLECTION TYPE CLN CATCH MIDSTREAM
[2021-12-23 17:52] LABS: BACTERIA,URINE FEW /HPF (Neg); MUCUS STRANDS NONE SEEN /LPF (Neg); RBC,URINE NONE SEEN /HPF (0-2); SQUAMOUS EPITHELIAL CELL,UR FEW /LPF (FEW); WBC,URINE 0-4 /HPF (0-4); YEAST FEW /HPF (NEGATIVE)
[2021-12-23 17:53] LABS: BASOPHILS % (AUTO) 0.4 % (0-1); EOSINOPHILS # (AUTO) 0.1 X10'3 (0-0.9); EOSINOPHILS % (AUTO) 0.8 % (0-6); HEMATOCRIT 40.3 % (35.0-45.0); HEMOGLOBIN 13.7 g/dl (12.0-16.0); LYMPHOCYTES # (AUTO) 2.2 X10'3 (1.1-4.8); LYMPHOCYTES % (AUTO) 18.7 % (21-51); MEAN CORPUSCULAR HEMOGLOBIN 27.3 PG (27.0-31.0); MEAN CORPUSCULAR HGB CONC 33.9 g/dL (33.0-36.5); MEAN CORPUSCULAR VOLUME 80.3 FL (78-98); MEAN PLATELET VOLUME 7.5 FL (7.4-10.4); MONOCYTES % (AUTO) 8.4 % (2-12); NEUTROPHILS # (AUTO) 8.4 X10'3 (1.8-7.7); NEUTROPHILS % (AUTO) 71.7 % (42-75); PLATELET COUNT 365 X10'3 (140-440); RED BLOOD COUNT 5.02 X10'6 (4.20-5.60); RED CELL DISTRIBUTION WIDTH 15.1 % (11.5-14.5); WHITE BLOOD COUNT 11.8 X10'3 (4.5-11.0)
[2021-12-23 18:01] LABS: ALANINE AMINOTRANSFERASE 28 U/L (12-78); ALBUMIN 3.6 G/DL (3.4-5.0); ALKALINE PHOSPHATASE 66 IU/L (46-116); ANION GAP 10 (8-16); ASPARTATE AMINO TRANSFERASE 23 U/L (10-37); BILIRUBIN,TOTAL 0.3 MG/DL (0.1-1.0); BLOOD UREA NITROGEN 14 MG/DL (7-18); BUN/CREATININE RATIO 15.6 (6.6-38.0); CALCIUM 9.2 MG/DL (8.5-10.1); CHLORIDE 89 MMOL/L (99-107); GLUCOSE 231 MG/DL (70-104); LIPASE 555 U/L (73-393); POTASSIUM 4.1 MMOL/L (3.5-5.1); SODIUM 126 MMOL/L (135-145); TOTAL CARBON DIOXIDE 26.7 MMOL/L (24-32); TOTAL PROTEIN 7.3 G/DL (6.4-8.2); eGFR 65 ML/MIN
[2021-12-23] MEDS ORDERED: normal saline 1000ml 1,000 ML IV ONE (19:10)
[2021-12-23] MEDS ORDERED: ondansetron/PF 4mg/2ml inj IV ONE (19:10)
[2021-12-23] MEDS ORDERED: iohexol 300mg/ml 100ml inj. ONE (19:42)
[2021-12-23] MEDS ORDERED: ONDA4TAB12 PO (21:04)
[2021-12-23 21:46] VITALS: BP 127/79
== END 2021-12-23 21:48 | disposition home or self-care (01) ==
LOC: ER 17:17
DX: B34.9 Viral infection, unspecified (principal); K57.90 Diverticulosis of intestine, part unspecified, without perforation or abscess without bleeding; K42.9 Umbilical hernia without obstruction or gangrene; R11.2 Nausea with vomiting, unspecified; R10.84 Generalized abdominal pain; R19.7 Diarrhea, unspecified; E78.00 Pure hypercholesterolemia, unspecified; I10 Essential (primary) hypertension; K21.9 Gastro-esophageal reflux disease without esophagitis; E11.9 Type 2 diabetes mellitus without complications; G89.29 Other chronic pain; F41.9 Anxiety disorder, unspecified; F31.9 Bipolar disorder, unspecified; F12.90 Cannabis use, unspecified, uncomplicated; Z87.442 Personal history of urinary calculi; Z90.89 Acquired absence of other organs; Z90.49 Acquired absence of other specified parts of digestive tract; Z90.710 Acquired absence of both cervix and uterus; Z98.890 Other specified postprocedural states; Z72.89 Other problems related to lifestyle; Z88.0 Allergy status to penicillin; Z88.1 Allergy status to other antibiotic agents; Z79.82 Long term (current) use of aspirin; Z79.4 Long term (current) use of insulin; Z79.899 Other long term (current) drug therapy
CPT/HCPCS: 36415; 74177; 80053; 81001; 81025; 83690; 85025; 87502; 87503; 96374; 99285; J2405; J3490; J7030; Q9967

== ENCOUNTER 2022-01-29 18:59 | Emergency (ER) | payer MEDICARE, MEDICAID ==
[~2022-01-29] VITALS: Ht 170.2 cm; Wt 64.5 kg
[~2022-01-29 18:59] MED LIST changes: +ONDA4TAB12 PO
[2022-01-30] MEDS ORDERED: HYDROcodone/acetaminophen 5mg/325mg tablet PO ONE (01:30)
[2022-01-30] MEDS ORDERED: celeCOXIB 100mg capsule PO SCH (01:30)
[2022-01-30 02:06] VITALS: BP 168/95
== END 2022-01-30 02:09 | disposition home or self-care (01) ==
LOC: ER 18:59
DX: K43.9 Ventral hernia without obstruction or gangrene (principal); E78.00 Pure hypercholesterolemia, unspecified; I10 Essential (primary) hypertension; K21.9 Gastro-esophageal reflux disease without esophagitis; E11.9 Type 2 diabetes mellitus without complications; G89.29 Other chronic pain; M54.50 Low back pain, unspecified; F31.9 Bipolar disorder, unspecified; F17.200 Nicotine dependence, unspecified, uncomplicated; F12.90 Cannabis use, unspecified, uncomplicated; Z98.890 Other specified postprocedural states; Z90.49 Acquired absence of other specified parts of digestive tract; Z90.710 Acquired absence of both cervix and uterus; Z88.0 Allergy status to penicillin; Z88.1 Allergy status to other antibiotic agents
CPT/HCPCS: 99283

== ENCOUNTER 2022-04-17 14:38 | Emergency (ER) | payer MEDICARE, MEDICAID ==
[~2022-04-17] VITALS: Ht 170.2 cm; Wt 69.0 kg
[~2022-04-17 14:38] MED LIST changes: -BENZ-49 PO; -EZET10TA6 PO; -INSU100V12 SQ; -PROM12.512 PO; -TRAM50TA2 PO
[2022-04-17 15:49] VITALS: BP 149/73
[2022-04-17] MEDS ORDERED: HYDR-3965 PO (17:32)
== END 2022-04-17 18:40 | disposition home or self-care (01) ==
LOC: ER 14:39
DX: M54.50 Low back pain, unspecified (principal); R10.2 Pelvic and perineal pain; E78.00 Pure hypercholesterolemia, unspecified; I10 Essential (primary) hypertension; K21.9 Gastro-esophageal reflux disease without esophagitis; E11.9 Type 2 diabetes mellitus without complications; G89.29 Other chronic pain; F41.9 Anxiety disorder, unspecified; F31.9 Bipolar disorder, unspecified; F12.90 Cannabis use, unspecified, uncomplicated; Z87.442 Personal history of urinary calculi; Z90.89 Acquired absence of other organs; Z90.49 Acquired absence of other specified parts of digestive tract; Z90.710 Acquired absence of both cervix and uterus; Z98.890 Other specified postprocedural states; Z72.89 Other problems related to lifestyle; Z88.0 Allergy status to penicillin; Z88.1 Allergy status to other antibiotic agents; Z79.82 Long term (current) use of aspirin; Z79.899 Other long term (current) drug therapy; W19.XXXA Unspecified fall, initial encounter; Y93.89 Activity, other specified; Y92.89 Other specified places as the place of occurrence of the external cause; Y99.8 Other external cause status
CPT/HCPCS: 72131; 72192; 99284

== ENCOUNTER 2023-08-28 15:47 | Emergency (ER) | payer MEDICARE, MEDICAID ==
[~2023-08-28] VITALS: Ht 170.2 cm; Wt 55.5 kg
[~2023-08-28 15:47] MED LIST changes: -PREG150C46 PO; +PREG150C47 PO
[2023-08-28 16:06] LABS: BASOPHILS # (AUTO) 0.1 X10'3 (0-0.2); BASOPHILS % (AUTO) 0.8 % (0-1); EOSINOPHILS # (AUTO) 0.2 X10'3 (0-0.9); EOSINOPHILS % (AUTO) 2.5 % (0-6); HEMATOCRIT 41.6 % (35.0-45.0); LYMPHOCYTES # (AUTO) 2.5 X10'3 (1.1-4.8); LYMPHOCYTES % (AUTO) 33.8 % (21-51); MEAN CORPUSCULAR HEMOGLOBIN 27.5 PG (27.0-31.0); MEAN CORPUSCULAR HGB CONC 33.7 g/dL (33.0-36.5); MEAN CORPUSCULAR VOLUME 81.6 FL (78-98); MEAN PLATELET VOLUME 7.8 FL (7.4-10.4); MONOCYTES # (AUTO) 0.6 X10'3 (0-0.9); MONOCYTES % (AUTO) 7.4 % (2-12); NEUTROPHILS # (AUTO) 4.2 X10'3 (1.8-7.7); NEUTROPHILS % (AUTO) 55.5 % (42-75); PLATELET COUNT 307 X10'3 (140-440); RED CELL DISTRIBUTION WIDTH 16.3 % (11.5-14.5); WHITE BLOOD COUNT 7.5 X10'3 (4.5-11.0)
[2023-08-28 16:20] LABS: ALANINE AMINOTRANSFERASE 24 U/L (12-78); ALBUMIN 3.8 G/DL (3.4-5.0); ALBUMIN/GLOBULIN RATIO 1.2 (1.1-1.5); ALKALINE PHOSPHATASE 54 IU/L (46-116); ANION GAP 7 (8-16); ASPARTATE AMINO TRANSFERASE 15 U/L (10-37); BILIRUBIN,TOTAL 0.3 MG/DL (0.1-1.0); BLOOD UREA NITROGEN 27 MG/DL (7-18); BUN/CREATININE RATIO 32.9 (10.0-20.0); CALCIUM 9.2 MG/DL (8.5-10.1); CHLORIDE 102 MMOL/L (99-107); CREATININE 0.82 MG/DL (0.40-0.90); GLUCOSE 187 MG/DL (70-104); POTASSIUM 4.2 MMOL/L (3.5-5.1); SODIUM 138 MMOL/L (135-145); TOTAL CARBON DIOXIDE 28.7 MMOL/L (24-32); eCRCL 65 ML/MIN; eGFR 72 ML/MIN
[2023-08-28 16:27] LABS: PRO BRAIN NATRIURETIC PEPTIDE 190 PG/ML (0-125)
[2023-08-28] MEDS: HYDROcodone/acetaminophen 10/325mg tab PO ONE (17:35)
[2023-08-28] MEDS: ketorolac trometh inj. 60 MG/2 ML VIAL IM ONE (17:37)
[2023-08-28] MEDS ORDERED: HYDR-3965 PO (18:31)
[2023-08-28 18:41] VITALS: BP 142/90; PULSE 70; RESP 17; TEMP 98.1; O2SAT 99
== END 2023-08-28 18:41 | disposition home or self-care (01) ==
LOC: ER 15:47
DX: R07.89 Other chest pain (principal); R06.02 Shortness of breath; G89.29 Other chronic pain; M54.9 Dorsalgia, unspecified; I10 Essential (primary) hypertension; F12.90 Cannabis use, unspecified, uncomplicated; F10.90 Alcohol use, unspecified, uncomplicated; E78.00 Pure hypercholesterolemia, unspecified; F41.8 Other specified anxiety disorders; F31.9 Bipolar disorder, unspecified; Z90.710 Acquired absence of both cervix and uterus; Z90.49 Acquired absence of other specified parts of digestive tract; Z98.890 Other specified postprocedural states; Z88.0 Allergy status to penicillin; Z88.1 Allergy status to other antibiotic agents; Z79.82 Long term (current) use of aspirin; Z79.899 Other long term (current) drug therapy
CPT/HCPCS: 36415; 71045; 80053; 83880; 84484; 85025; 93005; 96372; 99285; J1885